=== PATIENT | female | born 1960 | race Caucasian/White ===

== ENCOUNTER 2018-09-09 15:57 | Emergency (ER) | payer SELFPAY ==
[2018-09-09 16:02] VITALS: BP 140/81; PULSE 57; RESP 18; TEMP 36.1; O2SAT 100
--- NOTE | 2018-09-09 16:22 | ED.NAVMDI ---
HPI - Nausea/Vomiting/Diarrhea General Chief complaint: Dizziness Stated complaint: nausea/ vomiting/ dizzy Time Seen by Provider: 09/09/18 16:00 Source: patient and EMS Mode of arrival: ambulatory Limitations: no limitations History of Present Illness HPI Narrative: The patient presents to the emergency department via EMS, complaining of an episode of vertigo and nausea and vomiting started this afternoon after she ate a breakfast sandwich with sausage from [employer]. Patient states that after she ate the sandwich she began to feel nauseated and felt as though the room was spinning. Patient vomited several times, and had to lay down because of dizziness. Patient denies diarrhea. She denies fevers. She recently had a URI type illness, but has been doing better with that for the last couple of days. Patient states that she has not had issues with vertigo previously. She states the dizziness gets worse with movement. She complains of an occipital headache. No abdominal pain. No chest pain or shortness of breath. No residual cough. No focal neurologic deficits. No visual changes. No other complaints at this time. Related Data Home Medications Medication Instructions Recorded Confirmed felodipine 10 mg PO DAILY 09/09/18 09/09/18 irbesartan-hydrochlorothiazide 0.5 tab PO DAILY 09/09/18 09/09/18 oxycodone-acetaminophen 1 tab PO Q6H PRN 09/09/18 Previous Rx's Medication Instructions Recorded diazepam [Valium] 2 mg PO TID-QID PRN #14 tab 09/09/18 meclizine 25 mg PO TID PRN #20 tab 09/09/18 ondansetron 4 mg PO QID PRN #20 tab 09/09/18 Allergies Allergy/AdvReac Type Severity Reaction Status Date / Time No Known Drug Allergies Allergy Verified 09/09/18 16:05 Review of Systems Constitutional Denies chills, Denies fever(s), Denies lethargy and Denies weakness Eyes Denies change in vision, Denies eye discharge, Denies irritation and Denies loss of vision ENT Ears, Nose, Mouth, and Throat: Denies change in voice, Reports vertigo, Denies neck pain and Denies sore throat Cardiovascular Denies chest pain, Denies irregular heart rhythm, Denies lightheadedness, Denies palpitations, Denies dyspnea, Denies dyspnea on exertion and Denies orthopnea Respiratory Denies cough, Denies dyspnea, Denies dyspnea on exertion and Denies wheezing Gastrointestinal Gastrointestinal: Denies abdominal pain, Denies change in bowel habits, Denies diarrhea, Reports nausea and Reports vomiting Genitourinary Denies hematuria, Denies flank pain, Denies urinary incontinence and Denies urinary urgency Musculoskeletal Denies neck pain Integumentary/Breasts Denies pruritus, Denies erythema, Denies rash and Denies wounds Neurologic Denies confusion, Reports vertigo, Denies loss of vision and Denies weakness Psychiatric Denies anxiety, Denies confusion, Denies depression, Denies homicidal ideation and Denies suicidal ideation Endocrine Denies palpitations Hematologic/Lymphatic Denies easy bruising Allergic/Immunologic Denies wheezing [employer] Medical History Healthy adult (Acute) Social History Smoking Status: Current every day smoker Social History Smoking Status: Current every day smoker Exam Initial Vital Signs Initial Vital Signs: Vital Signs Temperature 97.0 F L 09/09/18 16:02 Pulse Rate 57 L 09/09/18 16:02 Respiratory Rate 18 09/09/18 16:02 Blood Pressure 140/81 09/09/18 16:02 Pulse Oximetry 100 09/09/18 16:02 Const General: cooperative and well developed Nutritional Appearance: well nourished Orientation: alert, awake, oriented x3 and not confused [facility] Head: normocephalic and atraumatic Ears: external ears normal and TM's normal bilaterally Nose: external nose normal and No nasal discharge Face and sinus: sinuses nontender, face symmetric, no sinus tenderness and No dry mucous membranes Mouth: oral mucosae normal and moist mucous membranes Teeth and gingiva: dentition normal Throat: tonsils normal and uvula midline Eyes General: appearance normal, both eyes and all related structures Eyelids: eyelids normal Conjunctivae: conjunctivae normal Sclera: sclerae normal Pupils: PERRL EOM: EOM intact bilaterally Neck Neck: normal visual inspection, trachea midline, No lymphadenopathy, No midline deformity and No JVD Lymphatic: No lymphedema Chest Chest: normal inspection of the chest Resp Effort & Inspection: normal respiratory effort, able to speak in complete sentences, no respiratory distress and no use of accessory muscles Auscultation: clear to auscultation bilaterally, no rales, no rhonchi and no wheezes Cardio Rate: regular rate Rhythm: regular rhythm Heart Sounds: no click, no gallops, no murmurs and no rubs Pulses: normal peripheral pulses GI Inspection: non-distended Palpation: soft, no hepatosplenomegaly, No guarding, No pulsatile mass and No tender Auscultation: normal bowel sounds Back/Spine/Pelvis Back: No CVA tenderness Cervical Spine: cervical ROM normal and No pain with cervical ROM Thoracic/Lumbar Spine: thoracic and lumbar spine normal to inspection Skin General: no rashes or lesions noted, No jaundice and No petechiae Neuro General: alert, oriented x3, gait normal and no focal motor deficits Speech: speech normal Extrem General: full ROM, no clubbing, cyanosis or edema, no pedal edema and no calf tenderness Psych Appearance: well kempt Mental Status: mental status grossly normal Attitude: cooperative Thought Content: normal and suicidality Judgment: judgment good Course Course Narrative: Patient was treated with IV fluids, Zofran, Valium, and meclizine. She was found to be somewhat better with her vertigo after these interventions, but still somewhat vertiginous. She was worked up with laboratory studies and CT of the head, as well as EKG. Workup was unremarkable. I did discuss with the patient that at this point, given the relation to position and movement, her vertigo is most likely peripheral. The patient does note that she had a URI a week or 2 ago, and we have discussed that she may have some labyrinthitis related to this. We have discussed home treatment for vertigo, as well as potentially for follow-up with ENT or neurology, should symptoms fail to resolve in the next week or so. We have also discussed the usual indications for return. I will give patient a prescription for symptomatic management at home. Patient has family here who can drive her home and with whom she can stay until she is feeling better. Orders Ordered: Discontinued Medications Diazepam (Valium) 2 mg IV NOW ONE Stop: 09/09/18 18:40 Last Admin: 09/09/18 18:54 Dose: 2 mg Sodium Chloride (Normal Saline 0.9%) 1,000 mls @ 1,000 mls/hr IV BOLUS ONE Stop: 09/09/18 17:44 Last Infusion: 09/09/18 18:29 Dose: 0 mls/hr Admin: 09/09/18 17:21 Dose: 1,000 mls/hr Meclizine HCl (Antivert) 50 mg PO NOW ONE Stop: 09/09/18 18:40 Last Admin: 09/09/18 19:46 Dose: 25 mg Ondansetron HCl (Zofran) 4 mg IV NOW ONE Stop: 09/09/18 17:47 Last Admin: 09/09/18 17:53 Dose: 4 mg Vital Signs - 8 hr 09/09/18 16:02 Temperature 97.0 F L Pulse Rate 57 L Respiratory Rate 18 Blood Pressure 140/81 Pulse Oximetry 100 MDM - Nausea/Vomiting/Diarrhea Medical Records Attestation: I reviewed the patient's medical records. Lab Data Attestation: I reviewed the patient's lab results. Result diagrams: 09/09/18 16:24 09/09/18 16:24 Lab Results 09/09/18 09/09/18 Range/Units 16:24 16:24 WBC 8.1 (4.5-11.0) X10^3/uL RBC 4.40 (4.0-5.2) X10^6/uL Hgb 13.6 (12.0-16.0) g/dL Hct 41.0 (36-46) % MCV 93.1 (80-100) fL MCH 30.9 (26-34) PG MCHC 33.2 (30-36) % RDW 13.3 (11.6-14.8) % Plt Count 297 (150-400) X10^3/uL Neut % (Auto) 69.2 (50-75) % Lymph % (Auto) 21.4 L (25-40) % [place] % (Auto) 6.7 (3-14) % Eos % (Auto) 1.9 L (2-4) % Baso % (Auto) 0.8 (0-2) % Neut # (Auto) 5600 (4322-8573) /uL Lymph # (Auto) 1700 (0445-3977) /uL [place] # (Auto) 500 (0-900) /uL Eos # (Auto) 200 (0-450) /uL Baso # (Auto) 100 (0-100) /uL Sodium 139 (137-145) mmol/L Potassium 3.8 (3.4-5.1) mmol/L Chloride 103 (98-107) mmol/L Carbon Dioxide 25 (22-32) mmol/L BUN 17 (7-17) mg/dL Creatinine 0.70 (0.52-1.04) mg/dL Estimated GFR > 60.0 (>60) mL/min BUN/Creatinine Ratio 24.3 H (6-22) Glucose 114 H (70-100) mg/dL Calcium 9.7 (8.4-10.2) mg/dL Total Bilirubin 0.4 (0.2-1.3) mg/dL AST 26 (14-36) IU/L ALT 27 (9-52) IU/L Alkaline Phosphatase 82 (38-126) U/L Total Creatine Kinase 104 (30-135) U/L CK-MB (CK-2) 0.40 (<2.37) ng/mL CK-MB (CK-2) Rel Index 0.4 L (1.5-5.0) % Troponin I < 0.012 (0.01-0.034) ng/mL Total Protein 7.2 (6.3-8.2) g/dL Albumin 4.1 (3.5-5.0) g/dL Globulin 3.1 (1.7-4.1) g/dL Albumin/Globulin Ratio 1.3 (1.0-2.8) Imaging Data CT scan - head: Radiologist's impression: PROCEDURE: CT HEAD/BRAIN WO CON INDICATIONS: dizziness/nausea/headache TECHNIQUE: Noncontrast 4.5 mm thick angled axial sections acquired from the foramen magnum to the vertex, with coronal and sagittal reformats. For radiation dose reduction, the following was used: automated exposure control, adjustment of mA and/or kV according to patient size. COMPARISON: None. FINDINGS: Image quality: Excellent. CSF spaces: Basal cisterns are patent. No extra-axial fluid collections. Ventricles are normal in size and shape. Brain: No midline shift. No intracranial masses or hemorrhage. Medeiros-white matter interface is normal. Skull and face: Calvarium and visualized facial bones are intact, without suspicious lesions. Sinuses: Visualized sinuses and mastoids are clear. IMPRESSION: No acute process. Dictated by: Charu Kate M.D. on 09/09/2018 at 18:33 Approved by: Charu Kate M.D. on 09/09/2018 at 18:33 ECG Data Attestation: I personally reviewed and interpreted this ECG as follows: (See below) Interpretation: Twelve lead EKG performed September 09, 2018, at 4:13 p.m., as follows: Regular ventricular rhythm with a rate of 55 beats per minute TX interval 151 milliseconds QRS duration 91 milliseconds QTC interval 435 millisecond Normal axis No ST T wave changes Interpretation: Sinus bradycardia; incomplete right bundle-branch block; no signs of acute ischemia; borderline EKG as interpreted by ED MD Discharge Plan Departure Patient Disposition: Home Clinical Impression: Vertigo Vomiting Qualifiers: Vomiting type: unspecified Vomiting Intractability: non-intractable Nausea presence: with nausea Qualified Code(s): R11.2 - Nausea with vomiting, unspecified Discharge Date/Time: 09/09/18 20:56 Interventions: ED Discharge Assessment Last Done: 09/09/18 20:56 Instructions: DI for Vertigo Activity Restrictions/Additional Instructions: Your labs and CT scan look good. There is no evidence of any of the dangerous causes of vertigo today. Your symptoms may be due to a viral infection of the nerves of the inner ear, or to calcium deposits in your inner ear, triggering the nerves that sense movement. The symptoms will generally blow over on their own in a few days to a few weeks. In the meantime, drink plenty of fluids, and take the medications prescribed, as needed. Prescriptions: New meclizine 25 mg tablet 25 mg PO TID PRN (Reason: dizziness) Qty: 20 RF: 0 diazepam [Valium] 2 mg tablet 2 mg PO TID-QID PRN (Reason: dizziness) Qty: 14 RF: 0 ondansetron 4 mg tablet,disintegrating 4 mg PO QID PRN (Reason: nausea and vomiting) Qty: 20 RF: 0 No Action oxycodone-acetaminophen 5-325 mg tablet 1 tab PO Q6H PRN (Reason: Pain, Severe) RF: 0 irbesartan-hydrochlorothiazide 300-12.5 mg tablet 0.5 tab PO DAILY RF: 0 felodipine 10 mg tablet extended release 24 hr 10 mg PO DAILY RF: 0 Referrals: [facility] [Provider Group] [facility] [Provider Group] [facility] [Provider Group]
[2018-09-09 16:31] LABS: Add Manual Diff / Slide Review NO; Basophils Absolute Auto 100 /uL (0-100); Basophils Percent Auto 0.8 % (0-2); Eosinophils Absolute Auto 200 /uL (0-450); Eosinophils Percent Auto 1.9 % (2-4); Hemoglobin 13.6 g/dL (12.0-16.0); Lymphocytes Absolute Auto 1700 /uL (1100-4500); Lymphocytes Percent Auto 21.4 % (25-40); Mean Corpuscular HGB Conc 33.2 % (30-36); Mean Corpuscular Hemoglobin 30.9 PG (26-34); Mean Corpuscular Volume 93.1 fL (80-100); Monocytes Absolute Auto 500 /uL (0-900); Monocytes Percent Auto 6.7 % (3-14); Neutrophils Absolute Auto 5600 /uL (1500-7000); Neutrophils Percent Auto 69.2 % (50-75); Platelet Count 297 X10^3/uL (150-400); Red Cell Distribution Width 13.3 % (11.6-14.8); White Blood Cell Count 8.1 X10^3/uL (4.5-11.0)
[2018-09-09 16:50] LABS: Alanine Aminotransferase 27 IU/L (9-52); Albumin 4.1 g/dL (3.5-5.0); Albumin Globulin Ratio 1.3 (1.0-2.8); Alkaline Phosphatase 82 U/L (38-126); Aspartate Aminotransferase 26 IU/L (14-36); BUN Creatinine Ratio 24.3 (6-22); Bilirubin Total 0.4 mg/dL (0.2-1.3); Blood Urea Nitrogen 17 mg/dL (7-17); Calcium 9.7 mg/dL (8.4-10.2); Carbon Dioxide 25 mmol/L (22-32); Chloride 103 mmol/L (98-107); Creatine Kinase 104 U/L (30-135); Estimated Glomerular Filt Rate > 60.0 mL/min (>60); Globulin 3.1 g/dL (1.7-4.1); Glucose 114 mg/dL (70-100); HEMOLYSIS < 15 (0-50); Potassium 3.8 mmol/L (3.4-5.1); Sodium 139 mmol/L (137-145); Total Protein 7.2 g/dL (6.3-8.2)
[2018-09-09 17:02] LABS: Troponin I < 0.012 ng/mL (0.01-0.034)
[2018-09-09 17:06] LABS: CKMB % Relative Index 0.4 % (1.5-5.0)
[2018-09-09] MEDS: SODIUM CHLORIDE 0.9% 1,000 ML 1000 ML IV (17:21)
--- NOTE | 2018-09-09 17:47 | DI.CT.S_ITS ---
PROCEDURE: CT HEAD/BRAIN WO CON INDICATIONS: dizziness/nausea/headache TECHNIQUE: Noncontrast 4.5 mm thick angled axial sections acquired from the foramen magnum to the vertex, with coronal and sagittal reformats. For radiation dose reduction, the following was used: automated exposure control, adjustment of mA and/or kV according to patient size. COMPARISON: None. FINDINGS: Image quality: Excellent. CSF spaces: Basal cisterns are patent. No extra-axial fluid collections. Ventricles are normal in size and shape. Brain: No midline shift. No intracranial masses or hemorrhage. Medeiros-white matter interface is normal. Skull and face: Calvarium and visualized facial bones are intact, without suspicious lesions. Sinuses: Visualized sinuses and mastoids are clear. IMPRESSION: No acute process. Dictated by: Charu Kate M.D. on 09/09/2018 at 18:33 Approved by: Charu Kate M.D. on 09/09/2018 at 18:33
[2018-09-09] MEDS: ONDANSETRON 4 MG/2 ML INJ IV (17:53)
[2018-09-09] MEDS: diazePAM 10 MG/2 ML SYRINGE 2 MG IV (18:54)
[2018-09-09 19:09] VITALS: BP 128/72; PULSE 53; RESP 15; O2SAT 96
[2018-09-09] MEDS: MECLIZINE HCL 12.5 MG TABLET 50 MG PO (19:46)
[2018-09-09 20:00] VITALS: BP 117/84; PULSE 54; RESP 16; O2SAT 97
[2018-09-09 20:30] VITALS: BP 133/73; PULSE 51; RESP 18; O2SAT 98
== END 2018-09-09 20:56 | disposition home or self-care (01) ==
PROVIDERS: Emergency Provider Emergency Medicine
DX: R42 Dizziness and giddiness (principal); R11.2 Nausea with vomiting, unspecified; R00.1 Bradycardia, unspecified
CPT/HCPCS: 70450; 80053; 82550; 82553; 84484; 85025; 93005; 96361; 96374; 96375; 99283; 99285; J2405; J3360

== ENCOUNTER 2022-10-18 12:38 | Emergency (ER) | payer OTHER, MEDICAID, SELFPAY ==
[2022-10-18 12:42] VITALS: BP 142/86; PULSE 115; RESP 18; TEMP 36.4; O2SAT 99; BMI 19.2
--- NOTE | 2022-10-18 14:57 | ED_ITS ---
HPI - Extremity Problem General Chief complaint: Extremity Problem,Nontraumatic Stated complaint: numbness extremities t-90/pain lt leg Time Seen by Provider: 10/18/22 14:57 Source: patient Mode of arrival: Ambulatory History of Present Illness HPI Narrative: 62-year-old female smoker with history of hypertension presents with a chief complaint of many months if not years of progressive numbness and tingling of initially her feet and now both hands. She is been having trouble with numbness and tingling of her feet which is worked its way up midway to her shins. She has been seen and evaluated by neurologist who diagnosed her with a peripheral neuropathy and was hoping she could get an MRI but due to insurance reasons she is been unable. She takes no medications other than her antihypertensives. She denies any recent trauma or injury. She denies headache or blurred vision. She has no runny nose, sore throat or cough. She denies chest pain or shortness of breath. She does have the occasional pain, numbness and tingling that works its way down her entire left leg. She states that it has become weak over the past few months and she even complains of some trouble urinating or creating a bowel movement. She denies the use of blood thinners, fever or trauma. Related Data Home Medications Medication Instructions Recorded Confirmed felodipine 10 mg tablet,extended 10 mg PO DAILY 09/09/18 09/09/18 release 24 hr irbesartan 300 0.5 tab PO DAILY 09/09/18 09/09/18 mg-hydrochlorothiazide 12.5 mg tablet oxycodone-acetaminophen 5 mg-325 1 tab PO Q6H PRN Pain, Severe 09/09/18 mg tablet Previous Rx's Medication Instructions Recorded diazepam 2 mg tablet (Valium) 2 mg PO TID-QID PRN dizziness #14 09/09/18 tabs meclizine 25 mg tablet 25 mg PO TID PRN dizziness #20 tabs 09/09/18 ondansetron 4 mg disintegrating 4 mg PO QID PRN nausea and 09/09/18 tablet vomiting #20 tabs cyclobenzaprine 10 mg tablet 10 mg PO TID PRN muscle spasm #14 10/18/22 tabs gabapentin 300 mg capsule 300 mg PO BEDTIME #14 caps 10/18/22 hydrocodone 5 mg-acetaminophen 325 1 tab PO Q4-6H PRN pain #10 tabs 10/18/22 mg tablet ketorolac 10 mg tablet 10 mg PO Q6H PRN pain #14 tabs 10/18/22 methylprednisolone 4 mg tablets in See Rx Instructions PO .COMPLEX 10/18/22 a dose pack (Medrol (Nic)) #21 ea Allergies Allergy/AdvReac Type Severity Reaction Status Date / Time No Known Drug Allergies Allergy Verified 10/18/22 12:47 Review of Systems Review of Systems Narrative: GENERAL: Denies chills, fatigue, malaise, fever, sweats. HEENT: Denies sinus pain, ear pain, sore throat, difficulty swallowing, dizziness. RESPIRATORY: Denies dyspnea, cough, wheezing, hemoptysis, sputum. CARDIOVASCULAR: Denies chest pain, palpitations, orthopnea, edema, GASTROINTESTINAL: Denies nausea, vomiting, abdominal pain, diarrhea, constipation, melena. : Denies dysuria, frequency, incontinence, hematuria, urinary retention. MUSCULOSKELETAL: See HPI SKIN: Denies rash, skin lesions, or other NEUROLOGIC: See HPI PSYCHIATRIC: No concerning psychosocial issues. 12 point review of systems is negative except for those stated above Patient History Medical History Healthy adult Social History Smoking Status: Current every day smoker Smoking Status: Current every day smoker tobacco type: cigarettes alcohol intake frequency: 0-2 drinks per day Substance Use Type: does not use Exam Narrative Exam Narrative: GENERAL: [62] year old patient appears stated age. Well-developed patient, in mild distress. HEAD: Atraumatic. Normocephalic. EYES: Pupils equal round and reactive. Extraocular motions intact. No scleral icterus. No injection or drainage. ENT: Nose without bleeding, purulent drainage. Throat without erythema, tonsillar hypertrophy or exudate. Airway patent. NECK: Trachea midline. Non tender CARDIOVASCULAR: Regular rate and rhythm without murmurs, gallops, or rubs. RESPIRATORY: Clear to auscultation. Breath sounds equal bilaterally. No wheezes, rales, or rhonchi. GASTROINTESTINAL: Abdomen soft, non-tender, nondistended. EXTREMITIES: No edema or joint tenderness. BACK: Nontender without deformity or crepitance. No flank tenderness. NEURO: AOx3. SKIN: No rash or erythema of visible areas Initial Vital Signs Initial Vital Signs: Vital Signs Temperature 97.5 F L 10/18/22 12:42 Pulse Rate 115 H 10/18/22 12:42 Respiratory Rate 18 10/18/22 12:42 Blood Pressure 142/86 H 10/18/22 12:42 Pulse Oximetry 99 10/18/22 12:42 Oxygen Delivery Method Room Air 10/18/22 12:42 Course Orders Ordered: Discontinued Medications Gabapentin (Gabapentin 300 Mg Capsule) 300 mg PO NOW ONE Stop: 10/18/22 15:08 Last Admin: 10/18/22 15:17 Dose: 300 mg Documented By: RB Lorazepam (Lorazepam 2 Mg/Ml Inj) 1 mg IM NOW ONE Stop: 10/18/22 15:39 Last Admin: 10/18/22 15:44 Dose: 1 mg Documented By: RB Prednisone (Prednisone 20 Mg Tablet) 40 mg PO NOW ONE Stop: 10/18/22 15:08 Last Admin: 10/18/22 15:17 Dose: 40 mg Documented By: RB Vital Signs Vital signs: Vital Signs - 8 hr 10/18/22 12:42 Temperature 97.5 F L Pulse Rate 115 H Respiratory Rate 18 Blood Pressure 142/86 H Pulse Oximetry 99 Oxygen Delivery Method Room Air MDM - Extremity (Nontraumatic) MDM Narrative Medical decision making narrative: [62] year old patient presents with numbness and tingling of both feet and left leg weakness in the absence of trauma Multiple etiologies for patient's symptoms considered including, but not limited to: [Peripheral neuropathy versus lumbar radiculopathy versus epidural abscess versus hematoma versus cauda equina versus other] Prior Charts reviewed in our EMR Primary Historian: patient Imaging reviewed: Lumbar MRI notes degenerative change at L4 and L5 with moderate to severe narrowing of the spinal canal and bilateral neural foraminal narrowing, at L5-S1 there is moderate narrowing of the spinal canal and severe bilateral neural foraminal narrowing, moderate to severe neural foraminal narrowing at the L3-L4 level on the left Patient's symptoms improved over duration of stay with above-stated therapies. No evidence of cauda equina or spinal cord compression, no epidural abscess or hematoma, radicular symptoms likely explained by these findings on imaging. Findings and discharge diagnosis discussed with patient/family followed by verbalization of understanding Return precautions discussed with patient/family whom verbalize understanding of diagnosis and plan Discharge Plan Departure Patient Disposition: Home Clinical Impression: Acute left lumbar radiculopathy Instructions: DI for Lumbar Radiculopathy Activity Restrictions/Additional Instructions: *You have been diagnosed with [acute lumbar radiculopathy] *What to do: *Please continue to take your regular medications as directed. [ x] New medication prescriptions sent to your pharmacy: [[facility] ] [ ] New medication written as a paper prescription [ ] No new medications given *Please follow up with Dr. Keyes at [facility] in 2-3 days, call for an appointment. Let them know you were seen in the Emergency Department and that we ask that you be seen in follow up. We will electronically transmit a record of today's note if your PCP is in our system *Return to Emergency Department if you should have any new, worsening or concerning symptoms, such as increasing pain, weakness, loss of control of bowel or bladder or other bothersome symptoms Prescriptions: New cyclobenzaprine 10 mg tablet 10 mg PO TID PRN (Reason: muscle spasm) Qty: 14 0RF hydrocodone-acetaminophen 5-325 mg tablet 1 tab PO Q4-6H PRN (Reason: pain) Qty: 10 0RF ketorolac 10 mg tablet 10 mg PO Q6H PRN (Reason: pain) Qty: 14 0RF gabapentin 300 mg capsule 300 mg PO BEDTIME Qty: 14 0RF methylprednisolone [Medrol (Nic)] 4 mg tablets,dose pack See Rx Instructions .ROUTE .COMPLEX Qty: 21 0RF Rx Instructions: orally per package directions No Action oxycodone-acetaminophen 5-325 mg tablet 1 tab PO Q6H PRN (Reason: Pain, Severe) Patient Comments: TK 1 T PO Q 6 H PRF SEVERE PAIN irbesartan-hydrochlorothiazide 300-12.5 mg tablet 0.5 tab PO DAILY Patient Comments: TK SS T PO D felodipine 10 mg tablet extended release 24 hr 10 mg PO DAILY Patient Comments: TK 1 T PO DAILY meclizine 25 mg tablet 25 mg PO TID PRN (Reason: dizziness) Qty: 20 0RF diazepam [Valium] 2 mg tablet 2 mg PO TID-QID PRN (Reason: dizziness) Qty: 14 0RF ondansetron 4 mg tablet,disintegrating 4 mg PO QID PRN (Reason: nausea and vomiting) Qty: 20 0RF Referrals: Kevin Keyes MD [Physician] - Miscellaneous,MD Hina [Primary Care Provider] - Stand Alone Forms: Patient Portal/API
--- NOTE | 2022-10-18 15:06 | DI.MRI.S_ITS ---
PROCEDURE: MR LUMBAR SPINE WO CON INDICATIONS: Left leg weakness, trouble with bowel and bladder TECHNIQUE: Noncontrast sagittal T1 spin echo and T2 fast echo, sagittal STIR, and T2 fast spin echo through the lumbar spine. In cases with scoliosis, additional coronal T2 fast spin echo may be performed. COMPARISON: None. FINDINGS: Image quality: Excellent. Alignment and Curvature: 2 mm grade 1 retrolisthesis of L5 on S1. Straightening of the normal lumbar lordosis. Bone Marrow: Marrow is of normal overall signal. No acute vertebral body compression fractures. Modic type 1 degenerative endplate changes are seen surrounding the L5-S1 disc space. Multilevel Modic type 2 degenerative endplate changes. Spinal Cord: Conus medullaris terminates at the L2 level. Visualized cord demonstrates normal signal and size. Paraspinous Soft Tissues: No paravertebral masses. 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 T12-L1: No spinal canal stenosis or neural foraminal narrowing. L1-L2: Disc desiccation and loss of disc space height with circumferential disc bulging, bilateral facet hypertrophy, and buckling of the ligamentum flavum. Findings result in mild narrowing of the spinal canal and mild bilateral neural foraminal narrowing. L2-L3: Disc desiccation and loss of disc space height with circumferential disc bulging, mild bilateral facet hypertrophy, buckling of the ligamentum flavum. There is moderate narrowing of the spinal canal as well as moderate right and mild left neural foraminal narrowing. L3-L4: Disc desiccation loss of disc space height with circumferential disc bulging as well as bilateral facet hypertrophy and buckling of the ligamentum flavum. Findings result in mild narrowing of the spinal canal as well as [id number] right and moderate to severe left neural foraminal narrowing. L4-L5: Disc desiccation and loss of disc space height with circumferential disc bulging as well as moderate bilateral facet hypertrophy and buckling of the ligamentum flavum. Findings result in moderate to severe narrowing of the spinal canal, effacement of the bilateral lateral recesses, and moderate to severe bilateral neural foraminal narrowing. L5-S1: Disc desiccation and loss of disc space height with circumferential disc bulging, bilateral facet hypertrophy, and buckling of the ligamentum flavum. Findings result in moderate narrowing of the spinal canal as well as severe bilateral neural foraminal narrowing. IMPRESSION: 1. At L4-5, degenerative changes result in moderate to severe narrowing of the spinal canal, effacement of the lateral recesses, and moderate to severe bilateral neural foraminal narrowing. 2. At L5-S1, degenerative changes result in moderate narrowing of the spinal canal and severe bilateral neural foraminal narrowing. 3. Moderate to severe neural foraminal narrowing also noted at the L3-4 level on the left. 4. Additional moderate to severe degenerative disc disease and facet hypertrophy as described in detail in the body of the report. Approved by: Titi Arroyo M.D. on 10/18/2022 at 16:30
[2022-10-18] MEDS: GABAPENTIN 300 MG CAPSULE PO (15:17)
[2022-10-18] MEDS: predniSONE 20 MG TABLET 40 MG PO (15:17)
[2022-10-18 15:18] VITALS: PULSE 82
[2022-10-18 15:21] VITALS: O2SAT 100
[2022-10-18 15:25] VITALS: BP 146/85; PULSE 77; O2SAT 100
[2022-10-18] MEDS: LORazepam 2 MG/ML INJ 1 MG IM (15:44)
[2022-10-18 17:07] VITALS: PULSE 88; O2SAT 97
[2022-10-18 17:08] VITALS: BP 124/75; PULSE 88; O2SAT 97
== END 2022-10-18 18:00 | disposition home or self-care (01) ==
PROVIDERS: Emergency Provider Emergency Medicine
DX: M54.16 Radiculopathy, lumbar region (principal)
CPT/HCPCS: 72148; 96372; 99283; 99284; J2060

== ENCOUNTER → 2022-12-11 12:11 | Outpatient (CLI) | payer OTHER, MEDICAID, SELFPAY | PROVIDERS: Visit Provider Nurse Practitioner Family | DX: R30.0 Dysuria (principal); R82.90 Unspecified abnormal findings in urine | CPT/HCPCS: 81002; 87077; 87086; 87186 ==

== ENCOUNTER → 2023-01-02 11:51 | Outpatient (CLI) | payer OTHER, MEDICAID, SELFPAY ==
--- NOTE | 2023-01-02 11:53 | DI.MRI.S_ITS ---
PROCEDURE: MR CERVICAL SPINE WO CON INDICATIONS: SPINAL STENOSIS TECHNIQUE: Noncontrast sagittal T1 spin echo and T2 fast spin echo, sagittal STIR, foraminal oblique sagittal T2 fast spin echo, and axial gradient echo or T2 fast spin echo through the cervical spine. COMPARISON: None. FINDINGS: Image quality: Excellent. Alignment and Curvature: Reversal the normal cervical lordosis present in the upper cervical spine Bone Marrow: Multilevel degenerative endplate changes present. There is C3-4 interbody fusion without instrumentation. Craniovertebral relationships are normal. Spinal Cord: Visualized spinal cord has normal size and signal. No cerebellar tonsillar herniation. Paraspinous Soft Tissues: No paravertebral masses. Prevertebral soft tissues are normal in thickness. C2-C3: Disc space narrowing posterior disc osteophyte complex with moderate central stenosis. Moderate bilateral foraminal stenosis. C3-C4: Interbody fusion. Posterior disc osteophyte results in moderate central stenosis moderate left and mild right foraminal stenosis C4-C5: Disc space narrowing with large posterior disc osteophyte complex hypertrophic uncovertebral joints present. Severe central and severe bilateral foraminal stenosis present. C5-C6: Disc space narrowing with posterior disc osteophyte complex results in moderate central stenosis with flattening the ventral surface of the cord severe left and moderate right foraminal stenosis C6-C7: Disc space narrowing with posterior disc osteophyte complex results in moderate central stenosis. Severe bilateral foraminal stenosis C7-T1: Disc space narrowing and posterior disc osteophyte complex present. No central stenosis. Severe bilateral foraminal stenosis. IMPRESSION: Multilevel degenerative disc disease and arthropathy results in varying degrees of central and foraminal stenosis including severe central stenosis at C4-5 and severe foraminal stenosis C4-5, C5-6, C6-7, C7-T1 Approved by: Antwan Baca M.D. on 01/02/2023 at 17:10
== END ==
PROVIDERS: Referring Provider Neurological Surgery; Visit Provider Neurological Surgery
DX: M48.02 Spinal stenosis, cervical region (principal); M50.30 Other cervical disc degeneration, unspecified cervical region; M47.812 Spondylosis without myelopathy or radiculopathy, cervical region; Z98.1 Arthrodesis status
CPT/HCPCS: 72141

== ENCOUNTER → 2023-02-08 10:32 | Outpatient (CLI) | payer OTHER, MEDICAID, SELFPAY ==
--- NOTE | 2023-02-08 | DI.CT.S_ITS ---
PROCEDURE: CT CERVICAL SPINE WO CON INDICATIONS: CERVICAL MYELOPATHY TECHNIQUE: Noncontrast 3 mm thick sections acquired from the skull base to the T4 level. Sagittal and coronal reformats were then constructed. For radiation dose reduction, the following was used: automated exposure control, adjustment of mA and/or kV according to patient size. COMPARISON: [facility], MR, MR CERVICAL SPINE WO CON, 01/02/2023, 12:00. FINDINGS: Image quality: Excellent. Bones: No fractures or dislocations. Ankylosis of the C3 and C4 vertebral bodies. Straightening of normal cervical lordosis with reversal at the upper cervical spine. There are multilevel degenerative changes of the cervical spine with facet and uncovertebral arthropathy, disc height loss with degenerative endplate changes and spurring. Visualized superior ribs are intact. Soft tissues: Prevertebral soft tissues are normal in thickness. No paravertebral hematomas. No apical pneumothoraces. Emphysematous changes are noted within the lung apices. IMPRESSION: Severe multilevel degenerative changes of the cervical spine. Please refer to recent MRI of the cervical spine with regards to central canal and neural foraminal stenosis. Dictated by: Dre Gonsales M.D. on 02/08/2023 at 11:25 Approved by: Dre Gonsales M.D. on 02/08/2023 at 11:29
--- NOTE | 2023-02-08 | DI.RAD.S_ITS ---
PROCEDURE: XR CERVICAL SPINE MIN 6V INDICATIONS: CERVICAL MYELOPATHY TECHNIQUE: 7 views of the cervical spine were acquired. COMPARISON: [facility], CT, CT CERVICAL SPINE WO [facility], 02/08/2023, 10:42. FINDINGS: Bones: No fractures or dislocations to the T1 level. Straightening of normal cervical lordosis with reversal of the upper cervical lordosis. No suspicious bony lesions. There are multilevel degenerative changes of the cervical spine with facet and uncovertebral arthropathy, disc height loss with degenerative endplate changes and spurring. There is limited range of motion between flexion and extension, with preserved bony alignment. Multilevel osseous neural foraminal stenosis on oblique views. Soft tissues: Prevertebral soft tissues are normal in thickness. IMPRESSION: Severe multilevel degenerative changes of the cervical spine are redemonstrated with limited range of motion on flexion and extension views. Dictated by: Dre Gonsales M.D. on 02/08/2023 at 11:30 Approved by: Dre Gonsales M.D. on 02/08/2023 at 11:32
== END ==
PROVIDERS: Referring Provider Neurological Surgery; Visit Provider Neurological Surgery
DX: M47.12 Other spondylosis with myelopathy, cervical region (principal)
CPT/HCPCS: 72052; 72125

== ENCOUNTER → 2023-04-07 13:01 | Outpatient (CLI) | payer OTHER, MEDICAID, SELFPAY | PROVIDERS: PCP Family Medicine; Visit Provider Family Medicine ==

== ENCOUNTER → 2023-08-29 10:53 | Outpatient (CLI) | payer OTHER, MEDICAID, SELFPAY | PROVIDERS: PCP Family Medicine; Visit Provider Nurse Practitioner Family | DX: S61.409A Unspecified open wound of unspecified hand, initial encounter (principal); B00.9 Herpesviral infection, unspecified | CPT/HCPCS: 87070; 87147; 87205; 87255 ==

== ENCOUNTER → 2023-09-23 16:40 | Outpatient (CLI) | payer OTHER, MEDICAID, SELFPAY | PROVIDERS: PCP Family Medicine; Visit Provider Nurse Practitioner Family | DX: L08.9 Local infection of the skin and subcutaneous tissue, unspecified (principal) | CPT/HCPCS: 87070; 87075; 87077; 87147; 87205 ==

== ENCOUNTER → 2023-11-19 11:41 | Outpatient (CLI) | payer MEDICARE, OTHER, MEDICAID, SELFPAY ==
[2023-11-19 12:38] LABS: Cholesterol 253 mg/dL (140-199); HDL Cholesterol 57 mg/dL (40-60); LDL Cholesterol Calculated 160 mg/dL (<100); Triglycerides 180 mg/dL (35-150)
[2023-11-20 18:31] LABS: Hemoglobin A1C% w Est Avg Glu 5.6 % (4.0-6.0)
== END ==
PROVIDERS: PCP Family Medicine; Referring Provider Family Medicine; Visit Provider Family Medicine
DX: I10 Essential (primary) hypertension (principal)
CPT/HCPCS: 36415; 80061; 83036

== ENCOUNTER → 2024-11-04 11:14 | Outpatient (CLI) | payer MEDICARE, OTHER, SELFPAY ==
[2024-11-04 12:12] LABS: Add Manual Diff / Slide Review NO; Basophils Absolute Auto 100 /uL (0-100); Basophils Percent Auto 1.2 % (0-2); Eosinophils Absolute Auto 200 /uL (0-450); Eosinophils Percent Auto 3.6 % (2-4); Hemoglobin 14.4 g/dL (12.0-16.0); Lymphocytes Absolute Auto 2300 /uL (1100-4500); Lymphocytes Percent Auto 35.7 % (25-40); Mean Corpuscular HGB Conc 34.3 % (30-36); Mean Corpuscular Hemoglobin 31.2 PG (26-34); Monocytes Absolute Auto 400 /uL (0-900); Monocytes Percent Auto 6.5 % (3-14); Neutrophils Absolute Auto 3400 /uL (1500-7000); Platelet Count 277 X10^3/uL (150-400); Red Blood Cell Count 4.62 X10^6/uL (4.0-5.2); Red Cell Distribution Width 13.2 % (11.6-14.8); White Blood Cell Count 6.4 X10^3/uL (4.5-11.0)
[2024-11-04 12:31] LABS: Hemoglobin A1C% w Est Avg Glu 5.3 % (4.0-6.0)
[2024-11-04 12:33] LABS: Alanine Aminotransferase 24 IU/L (<35); Albumin 4.5 g/dL (3.5-5.0); Albumin Globulin Ratio 1.3 (1.0-2.8); Alkaline Phosphatase 105 U/L (38-126); Aspartate Aminotransferase 31 IU/L (14-36); BUN Creatinine Ratio 32.6 (6-22); Bilirubin Total 0.7 mg/dL (0.2-1.3); Blood Urea Nitrogen 30 mg/dL (7-17); Calcium 9.6 mg/dL (8.4-10.2); Carbon Dioxide 26 mmol/L (22-32); Chloride 104 mmol/L (98-107); Cholesterol 260 mg/dL (140-199); Estimated Glomerular Filt Rate > 60 mL/min (>60); Globulin 3.6 g/dL (1.7-4.1); Glucose 94 mg/dL (70-99); HDL Cholesterol 53 mg/dL (40-60); HEMOLYSIS < 15 (0-50); LDL Cholesterol Calculated 181 mg/dL (<100); Potassium 4.3 mmol/L (3.4-5.1); Sodium 139 mmol/L (137-145); Total Protein 8.1 g/dL (6.3-8.2); Triglycerides 129 mg/dL (35-150)
[2024-11-04 13:04] LABS: TSH w/ Reflex to FT4 1.02 uIU/mL (0.47-4.68)
[2024-11-04 13:23] LABS: Vitamin B12 > 1000 pg/mL (239-931)
[2024-11-04 13:25] LABS: Erythrocyte Sedimentation Rate 5 MM/HR (0-20)
== END ==
PROVIDERS: PCP Family Medicine; Referring Provider Family Medicine; Visit Provider Family Medicine
DX: E78.5 Hyperlipidemia, unspecified (principal); M11.20 Other chondrocalcinosis, unspecified site; G60.3 Idiopathic progressive neuropathy
CPT/HCPCS: 36415; 80053; 80061; 82607; 83036; 84155; 84165; 84443; 85025; 85651

== ENCOUNTER 2025-04-05 18:07 | Inpatient (IN) | payer MEDICARE, OTHER, SELFPAY ==
[2025-04-05] VITALS (8 sets, daily range): BP systolic 128–147; BP diastolic 69–80; PULSE 67–83; RESP 20; TEMP 36.8–37.3; O2SAT 93–97; BMI 19.2
--- NOTE | 2025-04-05 | DI.RAD.S_ITS ---
PROCEDURE: XR CHEST 1V INDICATIONS: CXR TECHNIQUE: One view of the chest was acquired. COMPARISON: None. FINDINGS: Surgical changes and devices: Surgical fusion of the lower cervical spine. Lungs and pleura: Lungs are clear. No pleural effusions or pneumothorax. Mediastinum: Mediastinal contours appear normal. Heart size is normal. Bones and chest wall: No suspicious bony lesions. Overlying soft tissues appear unremarkable. IMPRESSION: No acute cardiopulmonary abnormality is seen. Dictated by: Oren Seth M.D. on 04/05/2025 at 18:59 Approved by: Oren Seth M.D. on 04/05/2025 at 19:00
--- NOTE | 2025-04-05 | DI.CT.S_ITS ---
PROCEDURE: CT PEL WO CON INDICATIONS: LEFT HIP PAIN AFTER FALL TECHNIQUE: Noncontrast 3 mm axial sections acquired through the bony pelvis, with coronal and sagittal reformatting. COMPARISON: None. FINDINGS: Image quality: Excellent. Bones: Angulated transcervical fracture of the left femur, with mild impaction. Soft tissues: Large left joint effusion. Severe dilation of the right renal pelvis, with transition point at the UPJ. Normal appendix. No significant diverticular disease. Tubal ligation clips present. IMPRESSION: Transcervical fracture of the left femur. Severe dilation of the right renal pelvis, with transition point at the UPJ. UPJ obstruction not excluded. Consider outpatient CT IVP unless there is abnormal creatinine (in which case an inpatient CT IVP would be recommended). Dictated by: Oren Seth M.D. on 04/05/2025 at 19:24 Approved by: Oren Seth M.D. on 04/05/2025 at 19:27
--- NOTE | 2025-04-05 18:17 | DI.RAD.S_ITS ---
PROCEDURE: XR HIP W PEL IF DONE LT 2V INDICATIONS: hip fracture suspected TECHNIQUE: 3 views of the hip were acquired. COMPARISON: None. FINDINGS/IMPRESSION: Impacted transcervical fracture of the left femur. Dictated by: Oren Seth M.D. on 04/05/2025 at 18:51 Approved by: Oren Seth M.D. on 04/05/2025 at 18:51
--- NOTE | 2025-04-05 18:55 | ED.FALL ---
HPI - Fall General Chief Complaint: Fall Stated Complaint: GLF, hip injury Time Seen by Provider: 04/05/25 18:15 Source: patient and EMS Mode of arrival: EMS History of Present Illness HPI Narrative: 64-year-old female who arrived by ambulance after a ground level fall. She is complaining of left hip pain. He has not anticoagulated did not hit her head, history is of a mechanical fall. EMS assist with the providing history. Related Data Previous Rx's ?Medication ?Instructions ?Recorded Disabled Parking Permit #1 ea 09/12/23 felodipine 10 mg tablet,extended 10 mg PO DAILY #90 tabs 10/28/24 release 24 hr irbesartan 300 0.5 tab PO DAILY #45 tabs 10/28/24 mg-hydrochlorothiazide 12.5 mg tablet trazodone 50 mg tablet 25 mg (1/2 x 50 mg) PO DAILY #90 10/28/24 tabs Allergies Allergy/AdvReac Type Severity Reaction Status Date / Time No Known Drug Allergies Allergy Verified 04/05/25 18:18 Patient History Medical History Aortic stenosis Calcium pyrophosphate deposition disease (CPPD) Cervical myelopathy (~2017) Chronic back pain (~1988) Healthy adult Heavy menstrual period History of abnormal cervical Pap smear Hyperlipidemia Hypertension Idiopathic progressive polyneuropathy Insomnia Murmur Painful menstrual periods Scoliosis Vertigo (~2018) Surgical History Status post cervical spinal fusion Status post laminectomy Social History household members: spouse Smoking Status: Former smoker alcohol intake: never Smoking Status: Former smoker tobacco type: cigarettes alcohol intake frequency: 0-2 drinks per day Exam Narrative Exam Narrative: Head is atraumatic. She is alert and oriented. Vital signs are reviewed, vitals are reassuring. Blood pressure was normal she is afebrile 93% saturated on removing Heart sounds are normal Lungs are clear Pelvis is stable to rock, has pain with any movement of her left lower extremity distal neurovascular exam is intact Initial Vital Signs Initial Vital Signs: Vital Signs Pulse Rate 78 04/05/25 18:12 Pulse Oximetry 97 04/05/25 18:12 Course Orders Ordered: ED Orders 04/05/25 18:01 CBC Auto Diff [Complete Blood Count AUTO DIFF] Stat CMP [Comprehensive Metabolic Panel] Stat Prothrombin Time INR Stat 04/05/25 18:17 XR hip w pel LT 2V Stat 04/05/25 18:49 Consult to Orthopedic Surgery Stat EKG-12 Lead Stat Acetaminophen (Acetaminophen 325 Mg Tablet) 650 mg PO Q6H PRN PRN Reason: Fever/Mild Pain (1-3) Last Admin: 04/05/25 21:05 Dose: 650 mg Documented By: TD Hydromorphone HCl (Hydromorphone 1 Mg/Ml Syringe) 1 mg IV Q3H PRN PRN Reason: Pain, Moderate (7-10) Last Admin: 04/05/25 22:53 Dose: 1 mg Documented By: TD Sodium Chloride (Normal Saline 0.9%) 1,000 mls @ 100 mls/hr IV CONT [facility] Last Admin: 04/05/25 21:04 Dose: 100 mls/hr Documented By: TD Naloxone HCl (Naloxone 0.4 Mg/Ml Vial) 0.2 mg IV Q2MIN PRN PRN Reason: Opiate Reversal Ondansetron HCl (Ondansetron 4 Mg/2 Ml Inj) 4 mg IV Q8HR PRN PRN Reason: Nausea And Vomiting Last Admin: 04/05/25 21:06 Dose: 4 mg Documented By: TD Oxycodone HCl (Oxycodone Ir 5 Mg Tablet) 5 mg PO Q3H PRN PRN Reason: Pain, Moderate (4-6) Last Admin: 04/05/25 21:05 Dose: 5 mg Documented By: TD Promethazine HCl (Promethazine 12.5 Mg Supp) 12.5 mg AL Q6HR PRN PRN Reason: Nausea And Vomiting Sennosides (Sennosides 8.6 Mg Tablet) 17.2 mg PO BEDTIME [facility] Last Admin: 04/05/25 21:04 Dose: 17.2 mg Documented By: TD Trazodone HCl (Trazodone 50 Mg Tablet) 25 mg PO BEDTIME [facility] Last Admin: 04/05/25 22:54 Dose: 25 mg Documented By: TD Discontinued Medications Hydromorphone HCl (Hydromorphone 1 Mg/Ml Syringe) 1 mg IV NOW ONE Stop: 04/05/25 18:15 Last Admin: 04/05/25 18:20 Dose: 1 mg Documented By: ES Morphine Sulfate (Morphine 4 Mg/Ml Inj) 3 mg IV Q2HR PRN PRN Reason: Pain, Severe (7-10) Last Admin: 04/05/25 21:06 Dose: 3 mg Documented By: TD Trazodone HCl (Trazodone 50 Mg Tablet) 25 mg PO DAILY DIANE Consultations Consultation #1: At 7:00 p.m., case is discussed with Orthopedics, Dr. Hobson, will consult Consultation #2: Hospitalist Dr Ryan accepts admission at 19:45 Vital Signs Vital signs: Vital Signs - 8 hr 04/05/25 18:12 04/05/25 18:18 04/05/25 18:50 Temperature 98.3 F Pulse Rate 78 83 83 Respiratory Rate 20 Blood Pressure 147/69 H Pulse Oximetry 97 97 96 Oxygen Delivery Method Room Air 04/05/25 19:00 04/05/25 19:30 Temperature Pulse Rate 77 67 Respiratory Rate Blood Pressure Pulse Oximetry 94 94 Oxygen Delivery Method MDM - Fall Lab Data Lab results narrative: CBC with diff and CMP are unremarkable. Coags are normal 04/05/25 18:01 04/05/25 18:01 Labs: Lab Results 04/05/25 Range/Units 18:01 WBC 6.9 (4.5-11.0) X10^3/uL RBC 4.19 (4.0-5.2) X10^6/uL Hgb 12.8 (12.0-16.0) g/dL Hct 37.4 (36-46) % MCV 89.4 (80-100) fL MCH 30.6 (26-34) PG MCHC 34.2 (30-36) % RDW 13.2 (11.6-14.8) % Plt Count 265 (150-400) X10^3/uL Neut % (Auto) 51.2 (50-75) % Lymph % (Auto) 36.7 (25-40) % [place] % (Auto) 8.0 (3-14) % Eos % (Auto) 2.7 (2-4) % Baso % (Auto) 1.4 (0-2) % Neut # (Auto) 3500 (2767-0158) /uL Lymph # (Auto) 2500 (7385-4312) /uL [place] # (Auto) 600 (0-900) /uL Eos # (Auto) 200 (0-450) /uL Baso # (Auto) 100 (0-100) /uL PT 11.7 (9.4-12.5) SECONDS INR 1.0 (0.9-1.3) Sodium 140 (137-145) mmol/L Potassium 4.3 (3.4-5.1) mmol/L Chloride 108 H (98-107) mmol/L Carbon Dioxide 25 (22-32) mmol/L BUN 39 H (7-17) mg/dL Creatinine 1.04 (0.52-1.04) mg/dL Estimated GFR 60 (>60) mL/min BUN/Creatinine Ratio 37.5 H (6-22) Glucose 93 (70-99) mg/dL Calcium 9.5 (8.4-10.2) mg/dL Total Bilirubin 0.3 (0.2-1.3) mg/dL AST 27 (14-36) IU/L ALT 21 (<35) IU/L Alkaline Phosphatase 76 (38-126) U/L Total Protein 7.2 (6.3-8.2) g/dL Albumin 4.1 (3.5-5.0) g/dL Globulin 3.1 (1.7-4.1) g/dL Albumin/Globulin Ratio 1.3 (1.0-2.8) Imaging Data Extremity x-ray #1: My Impression: Left hip fracture Chest x-ray: My Impression: Independently reviewed chest x-ray, no acute findings Radiologist's Impression: Radiology report indicated no acute findings ECG Data Attestation: I personally reviewed and interpreted this ECG as follows: MDM Narrative Medical decision making narrative: 64-year-old female with left hip pain after ground this up. She has a closed hip fracture distal neurovascular exam is intact. No other injuries were identified she is medically stable, will be admitted to hospitalist service with the orthopedics she is soaking. Discharge Plan Departure Patient Disposition: Admitted As Inpatient Clinical Impression: Closed fracture of left hip Qualifiers: Encounter type: initial encounter Qualified Code(s): S72.002A - Fracture of unspecified part of neck of left femur, initial encounter for closed fracture Admit Date/Time: 04/05/25 19:46 Admit Provider: Ayaan Ryan
[2025-04-05 18:56] LABS: Add Manual Diff / Slide Review NO; Hematocrit 37.4 % (36-46); Hemoglobin 12.8 g/dL (12.0-16.0); Lymphocytes Absolute Auto 2500 /uL (1100-4500); Mean Corpuscular HGB Conc 34.2 % (30-36); Mean Corpuscular Hemoglobin 30.6 PG (26-34); Mean Corpuscular Volume 89.4 fL (80-100); Platelet Count 265 X10^3/uL (150-400)
[2025-04-05 18:58] LABS: INR 1.0 (0.9-1.3); Prothrombin Time 11.7 SECONDS (9.4-12.5)
[2025-04-05 19:05] LABS: Alanine Aminotransferase 21 IU/L (<35); Albumin 4.1 g/dL (3.5-5.0); Albumin Globulin Ratio 1.3 (1.0-2.8); Alkaline Phosphatase 76 U/L (38-126); Blood Urea Nitrogen 39 mg/dL (7-17); Calcium 9.5 mg/dL (8.4-10.2); Carbon Dioxide 25 mmol/L (22-32); Chloride 108 mmol/L (98-107); Estimated Glomerular Filt Rate 60 mL/min (>60); Globulin 3.1 g/dL (1.7-4.1); Glucose 93 mg/dL (70-99); HEMOLYSIS < 15 (0-50); Potassium 4.3 mmol/L (3.4-5.1); Sodium 140 mmol/L (137-145); Total Protein 7.2 g/dL (6.3-8.2)
[2025-04-05] MEDS: SODIUM CHLORIDE 0.9% 1,000 ML 100 ML IV (21:04)
[2025-04-05] MEDS: SENNOSIDES 8.6 MG TABLET 17.2 MG PO (21:04)
[2025-04-05] MEDS: ACETAMINOPHEN 325 MG TABLET 650 MG PO (21:05)
[2025-04-05] MEDS: ONDANSETRON 4 MG/2 ML INJ IV (21:06)
[2025-04-05] MEDS: MORPHINE 4 MG/ML INJ 3 MG IV (21:06)
--- NOTE | 2025-04-05 21:32 | PM.HP.IH.1 ---
History of Present Illness History of Present Illness Date Patient Seen: 04/05/25 Time Patient Seen: 08:45 Chief complaint: GLF, hip injury Narrative: 64-year-old female with left hip pain after a ground level fall on 04/05/2025.? She did have pre-existing left hip pain although it was mild.? She is able to walk for 45 minutes without any assistive devices.? When she does have hip pain her right hip pain hurts more than her left hip.? She had a recent cervical spine surgery from C1- C7 and this is a necessitates that she does not lift anything heavy. 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 Physical exam reveals a well-developed well-nourished 64-year-old in no acute distress Evaluation of her left lower extremity demonstrates that she has a shortened and externally rotated left lower extremity. She fires her tibialis anterior, gastroc soleus, EHL and FHL.? Sensation is intact to light touch in the saphenous, sural, tibial, deep peroneal and superficial peroneal nerve distributions Her dorsalis pedis pulses 2+ and she has brisk capillary refill X-rays obtained of her left hip and AP pelvis on 04/05/2025 demonstrate a displaced femoral neck fracture.? CT scan confirms.? She also has a cyst in her femoral neck. I discussed her x-rays and history and physical exam with Dr. Lau.? I also discussed the risks benefits and alternatives of surgical versus nonsurgical treatment.? I also discussed the risks and benefits of hemiarthroplasty versus total hip arthroplasty with the patient.? I discussed the risks of surgery to include but not limited to damage to arteries, veins, nerves, need for additional surgery, risks of blood clots and risks of pulmonary embolus as well as risks of wound breakdown and infection.? I discussed with her the risks and benefits hip hemiarthroplasty versus total hip arthroplasty to include acetabular wear with a hemiarthroplasty and increased longevity with a total hip arthroplasty. Her questions were answered.? We will plan for total hip arthroplasty on 04/06/2025. NPO after midnight tonight.? Plan for physical therapy and occupational therapy and weight-bearing as tolerated postoperatively. [facility] Medical History Aortic stenosis Calcium pyrophosphate deposition disease (CPPD) Cervical myelopathy (~2018) Chronic back pain (~1988) Healthy adult Heavy menstrual period History of abnormal cervical Pap smear Hyperlipidemia Hypertension Idiopathic progressive polyneuropathy Insomnia Murmur Painful menstrual periods Scoliosis Vertigo (~2018) Surgical History Status post cervical spinal fusion Status post laminectomy Social History household members: spouse Smoking Status: Former smoker alcohol intake: never Meds Home Medications and Allergies Home Medications ?Medication ?Instructions ?Recorded ?Confirmed ?Type Disabled Parking Permit #1 ea 09/12/23 04/05/25 Rx felodipine 10 mg tablet,extended 10 mg PO DAILY #90 tabs 10/28/24 04/05/25 Rx release 24 hr irbesartan 300 0.5 tab PO DAILY #45 tabs 10/28/24 04/05/25 Rx mg-hydrochlorothiazide 12.5 mg tablet trazodone 50 mg tablet 25 mg (1/2 x 50 mg) PO DAILY #90 10/28/24 04/05/25 Rx tabs Allergies Allergy/AdvReac Type Severity Reaction Status Date / Time No Known Drug Allergies Allergy Verified 04/05/25 18:18 Exam Vital Signs (past 8 hours): - 04/05/25 18:12 04/05/25 18:18 04/05/25 18:50 Temperature 98.3 F Pulse Rate 78 83 83 Respiratory Rate 20 Blood Pressure 147/69 H Pulse Oximetry 97 97 96 Oxygen Delivery Method Room Air Oxygen Flow Rate 04/05/25 19:00 04/05/25 19:30 04/05/25 20:00 Temperature Pulse Rate 77 67 68 Respiratory Rate Blood Pressure Pulse Oximetry 94 94 94 Oxygen Delivery Method Oxygen Flow Rate 04/05/25 20:35 04/05/25 21:16 Temperature 99.1 F Pulse Rate 68 81 Respiratory Rate 20 Blood Pressure 128/80 Pulse Oximetry 93 93 Oxygen Delivery Method Oxygen Flow Rate 0 Oxygen Delivery Method Room Air Oxygen Flow Rate 0 Objective Labs 04/05/25 18:01 04/05/25 18:01 Labs: Laboratory Results - last 24 hr 04/05/25 18:01 WBC 6.9 RBC 4.19 Hgb 12.8 Hct 37.4 MCV 89.4 MCH 30.6 MCHC 34.2 RDW 13.2 Plt Count 265 Neut % (Auto) 51.2 Lymph % (Auto) 36.7 [place] % (Auto) 8.0 Eos % (Auto) 2.7 Baso % (Auto) 1.4 Neut # (Auto) 3500 Lymph # (Auto) 2500 [place] # (Auto) 600 Eos # (Auto) 200 Baso # (Auto) 100 PT 11.7 INR 1.0 Sodium 140 Potassium 4.3 Chloride 108 H Carbon Dioxide 25 BUN 39 H Creatinine 1.04 Estimated GFR 60 BUN/Creatinine Ratio 37.5 H Glucose 93 Calcium 9.5 Total Bilirubin 0.3 AST 27 ALT 21 Alkaline Phosphatase 76 Total Protein 7.2 Albumin 4.1 Globulin 3.1 Albumin/Globulin Ratio 1.3 Assessment & Plan Assessment and plan (1) Closed fracture of left hip: Qualifiers: Encounter type: initial encounter Qualified Code(s): S72.002A - Fracture of unspecified part of neck of left femur, initial encounter for closed fracture Status: Acute Plan I discussed her x-rays and history and physical exam with Dr. Lau.? I also discussed the risks benefits and alternatives of surgical versus nonsurgical treatment.? I also discussed the risks and benefits of hemiarthroplasty versus total hip arthroplasty with the patient.? I discussed the risks of surgery to include but not limited to damage to arteries, veins, nerves, need for additional surgery, risks of blood clots and risks of pulmonary embolus as well as risks of wound breakdown and infection.? I discussed with her the risks and benefits hip hemiarthroplasty versus total hip arthroplasty to include acetabular wear with a hemiarthroplasty and increased longevity with a total hip arthroplasty. Her questions were answered.? We will plan for total hip arthroplasty on 04/06/2025. - NPO after midnight tonight.? - Plan for physical therapy and occupational therapy and weight-bearing as tolerated postoperatively. Time-Based Coding :: [TOTAL MINUTES] spent with patient and on the chart (including review of chart, obtaining history, exam, reviewing outside data, placing orders, documenting exam and treatment plan, and counseling patient) on [DATE]. PROFEE Guest Laundry Attendant Document charge(s): Yes
--- NOTE | 2025-04-05 22:24 | PM.HP.1 ---
History of Present Illness History of Present Illness Date Patient Seen: 04/05/25 Time Patient Seen: 22:24 Chief complaint: GLF, hip injury Narrative: The pt is a 64 yo who presents to the ER with a left femoral neck fracture after she fell at home. She states tshe was walking to the bathroom when she turned around and fell. There was no head injury, no LOC, She does have chronic back pain with neuropathy due to a cervical fracture 2 years ago, she quit smoking 2 years ago and has a > 40 pk yr hx. Sometimes uses a cane to walk at home, has a walker at home but doesn't use it. [facility] Medical History Aortic stenosis Calcium pyrophosphate deposition disease (CPPD) Cervical myelopathy (~2017) Chronic back pain (~1988) Healthy adult Heavy menstrual period History of abnormal cervical Pap smear Hyperlipidemia Hypertension Idiopathic progressive polyneuropathy Insomnia Murmur Painful menstrual periods Scoliosis Vertigo (~2018) Surgical History Status post cervical spinal fusion Status post laminectomy Social History household members: spouse Smoking Status: Former smoker alcohol intake: never Meds Home Medications and Allergies Home Medications ?Medication ?Instructions ?Recorded ?Confirmed ?Type Disabled Parking Permit #1 ea 09/12/23 04/05/25 Rx felodipine 10 mg tablet,extended 10 mg PO DAILY #90 tabs 10/28/24 04/05/25 Rx release 24 hr irbesartan 300 0.5 tab PO DAILY #45 tabs 10/28/24 04/05/25 Rx mg-hydrochlorothiazide 12.5 mg tablet trazodone 50 mg tablet 25 mg (1/2 x 50 mg) PO DAILY #90 10/28/24 04/05/25 Rx tabs Allergies Allergy/AdvReac Type Severity Reaction Status Date / Time No Known Drug Allergies Allergy Verified 04/05/25 18:18 Exam Vital Signs (past 8 hours): - 04/05/25 18:12 04/05/25 18:18 04/05/25 18:50 Temperature 98.3 F Pulse Rate 78 83 83 Respiratory Rate 20 Blood Pressure 147/69 H Pulse Oximetry 97 97 96 Oxygen Delivery Method Room Air Oxygen Flow Rate 04/05/25 19:00 04/05/25 19:30 04/05/25 20:00 Temperature Pulse Rate 77 67 68 Respiratory Rate Blood Pressure Pulse Oximetry 94 94 94 Oxygen Delivery Method Oxygen Flow Rate 04/05/25 20:35 04/05/25 21:16 Temperature 99.1 F Pulse Rate 68 81 Respiratory Rate 20 Blood Pressure 128/80 Pulse Oximetry 93 93 Oxygen Delivery Method Oxygen Flow Rate 0 Oxygen Delivery Method Room Air Oxygen Flow Rate 0 Const General: cooperative, healthy appearing and comfortable Other: Due to equipment failure, I was unable to exam the pt, but was able to visually inspect the pt. Objective Labs 04/05/25 18:01 04/05/25 18:01 Labs: Laboratory Results - last 24 hr 04/05/25 18:01 WBC 6.9 RBC 4.19 Hgb 12.8 Hct 37.4 MCV 89.4 MCH 30.6 MCHC 34.2 RDW 13.2 Plt Count 265 Neut % (Auto) 51.2 Lymph % (Auto) 36.7 [place] % (Auto) 8.0 Eos % (Auto) 2.7 Baso % (Auto) 1.4 Neut # (Auto) 3500 Lymph # (Auto) 2500 [place] # (Auto) 600 Eos # (Auto) 200 Baso # (Auto) 100 PT 11.7 INR 1.0 Sodium 140 Potassium 4.3 Chloride 108 H Carbon Dioxide 25 BUN 39 H Creatinine 1.04 Estimated GFR 60 BUN/Creatinine Ratio 37.5 H Glucose 93 Calcium 9.5 Total Bilirubin 0.3 AST 27 ALT 21 Alkaline Phosphatase 76 Total Protein 7.2 Albumin 4.1 Globulin 3.1 Albumin/Globulin Ratio 1.3 Assessment & Plan Assessment & Plan narrative: I have discussed with the Er provider the pt's presenting symptoms, labs, imaging and agree with the decision for admission. I have personally reviewed the labs, showing a normal BMP & CBC, I have also reviewed the X-ray showing the fracture of the left femur. Orthopedic surgery has been consulted and will evaluate the pt in the morning, she is currently on IVF, IV + PO narcotics for pain control, we are changing the morphine to Dilaudid since she states morphine normally doesn't work for her. NPO after midnight. I, Dr. Ayaan Ryan in [place] has seen and evaluted Alis Barbosa in [place] using telemedicine audio and video with the patient's consent and nursing assistance. Time-Based Coding :: [TOTAL MINUTES] spent with patient and on the chart (including review of chart, obtaining history, exam, reviewing outside data, placing orders, documenting exam and treatment plan, and counseling patient) on [DATE].
[2025-04-06] VITALS (19 sets, daily range): BP systolic 100–141; BP diastolic 55–86; PULSE 65–113; RESP 11–20; TEMP 36.7–37.2; O2SAT 90–98
--- NOTE | 2025-04-06 | DI.RAD.S_ITS ---
PROCEDURE: XR HIP W PEL IF DONE LT 2V INDICATIONS: Left Hip HIEN TECHNIQUE: Intraoperative fluoroscopic examination. 22 images submitted. COMPARISON: [facility], CR, XR HIP W PEL LT 2V, 04/05/2025, 18:20. FINDINGS: Intraoperative fluoroscopic examination demonstrating left total hip arthroplasty. IMPRESSION: As above Dictated by: Nick Monteiro M.D. on 04/06/2025 at 13:20 Approved by: Nick Monteiro M.D. on 04/06/2025 at 13:21
--- NOTE | 2025-04-06 | DI.RAD.S_ITS ---
PROCEDURE: XR HIP W PEL IF DONE LT 2V INDICATIONS: Post op HIEN TECHNIQUE: Two views COMPARISON: [facility], CR, XR HIP W PEL LT 2V, 04/06/2025, 11:26. FINDINGS: Acute postsurgical changes of left total hip arthroplasty. No hardware failure. No fracture or dislocation. Clips project over the pelvis. Mild degenerative changes of the right hip. IMPRESSION: Left total hip arthroplasty. Dictated by: Nick Monteiro M.D. on 04/06/2025 at 14:01 Approved by: Nick Monteiro M.D. on 04/06/2025 at 14:03
--- NOTE | 2025-04-06 | PATH_ITS ---
[facility] Accession Number: [id number] No. of containers..02 Tissue . 01 Material submitted: . PART A: femur - LEFT FEMORAL NECK PART B: femur - LEFT FEMORAL HEAD . 01 Diagnosis: A. LEFT FEMORAL NECK, CURETTINGS: Fragments of trabecular bone with changes secondary to fracture, in a background of osteopenia, degenerative changes, and scant intramedullary hematopoietic elements. Negative for malignancy. . B. LEFT FEMORAL HEAD, EXCISION: Trabecular bone with degeneration and changes secondary to fracture, in a background of osteopenia. Mature trilineage hematopoietic marrow also present. Negative for malignancy. MRV 04/15/2025 1754 Local . 01 Electronically signed: . Traci Lilly MD, Pathologist NPI- [id number] . 01 Gross description: . A. Received in formalin with two patient identifiers, and left femoral neck is a 4.5 x 4.5 x 2.6 cm aggregate of brown, markedly disrupted bone fragments. Orientation cannot be determined. Dictating Transcribing Machine Servicer sections are submitted in A1 following decalcification. B. Received in formalin with two patient identifiers, and left femoral head is a 4.5 x 4.5 x 3.8 cm spherical portion of bone. The proximal margin is jagged and hemorrhagic (inked black). The articular surface is eroded with multiple areas of disruption and approximately 10% eburnation. The cut surface is yellow-red and moderately hemorrhagic. A discrete mass or lesion sis not grossly identified. The cortex is 0.2 cm thick. Dictating Transcribing Machine Servicer sections are submitted in B1-B2 following decalcification. ([id number]) /MRV 04/08/2025 1649 Local . 01 Pathologist provided ICD-10: S72.002A . 01 CPT . 154873, 293979, 123509, 246417 Specimen Comment: A courtesy copy of this report has been sent to [facility] Pathology Performed at: [address] [id number] MD Francisco J Calderon MD Phone: [phone]
[2025-04-06] MEDS: SODIUM CHLORIDE 0.9% 1,000 ML 100 ML IV ×2 (06:46→22:27)
--- NOTE | 2025-04-06 07:29 | P.PN_ITS ---
Subjective Subjective Interval history: Summary: The pt is a 64 yo who presents to the ER with a left femoral neck fracture after she fell at home. She states tshe was walking to the bathroom when she turned around and fell. There was no head injury, no LOC, She does have chronic back pain with neuropathy due to a cervical fracture 2 years ago, she quit smoking 2 years ago and has a > 40 pk yr hx. Sometimes uses a cane to walk at home, has a walker at home but doesn't use it. S: She was doing well, having minimal pain. She was on oxygen, was desaturating while in the PACU. She also was having intermittent probable atrial fibrillation with RVR. O: VSS. NAD, alert and oriented. Fluent speech. Lungs are clear, normal rate and effort. Heart is regular, systolic murmur and no gallop or rub. Abdomen is soft, non distended. Extremities are free of edema. A/P: 1. Left hip fracture, active. 2. Hypertension, active. 3. Acute hypoxic respiratory failure, active. 4. Probable PAF with RVR, active. PLAN: -operative repair per Orthopedics. -monitor blood pressure -pain control -postoperative DVT prophylaxis -telemetry to monitor rhythm -wean oxygen as able Full resuscitation Anticipate 2 midnights in the hospital, supports inpatient status. Exam Vital Signs (past 8 hours): Oxygen Delivery Method Room Air Oxygen Flow Rate 0 Objective Labs 04/05/25 18:01 04/05/25 18:01 Labs: Laboratory Results - last 24 hr 04/05/25 18:01 WBC 6.9 RBC 4.19 Hgb 12.8 Hct 37.4 MCV 89.4 MCH 30.6 MCHC 34.2 RDW 13.2 Plt Count 265 Neut % (Auto) 51.2 Lymph % (Auto) 36.7 [place] % (Auto) 8.0 Eos % (Auto) 2.7 Baso % (Auto) 1.4 Neut # (Auto) 3500 Lymph # (Auto) 2500 [place] # (Auto) 600 Eos # (Auto) 200 Baso # (Auto) 100 PT 11.7 INR 1.0 Sodium 140 Potassium 4.3 Chloride 108 H Carbon Dioxide 25 BUN 39 H Creatinine 1.04 Estimated GFR 60 BUN/Creatinine Ratio 37.5 H Glucose 93 Calcium 9.5 Total Bilirubin 0.3 AST 27 ALT 21 Alkaline Phosphatase 76 Total Protein 7.2 Albumin 4.1 Globulin 3.1 Albumin/Globulin Ratio 1.3 PFSH Medical History Aortic stenosis Calcium pyrophosphate deposition disease (CPPD) Cervical myelopathy (~2017) Chronic back pain (~1988) Healthy adult Heavy menstrual period History of abnormal cervical Pap smear Hyperlipidemia Hypertension Idiopathic progressive polyneuropathy Insomnia Murmur Painful menstrual periods Scoliosis Vertigo (~2018) Surgical History Status post cervical spinal fusion Status post laminectomy Social History household members: significant other Smoking Status: Former smoker alcohol intake: never Assessment & Plan Time-Based Coding :: [TOTAL MINUTES] spent with patient and on the chart (including review of chart, obtaining history, exam, reviewing outside data, placing orders, documenting exam and treatment plan, and counseling patient) on [DATE].
--- NOTE | 2025-04-06 09:33 | SUR.OPER ---
Patient supine on padded Gary table, one arm on padded arm board at <90, other arm padded and secured with tape across patient's chest, both legs secured in padded traction boots and positioned per surgeon, padded post at patient's groin, pressure points checked and padded. Final positioning done by provider
--- NOTE | 2025-04-06 09:49 | PM.HP.IH.1 ---
History of Present Illness History of Present Illness Chief complaint: GLF, hip injury Narrative: CHIEF COMPLAINT - Displaced left femoral neck fracture. HISTORY OF PRESENT ILLNESS Nicolás Barbosa presented after sustaining a fall at home, resulting in a displaced left femoral neck fracture. She described losing balance in the hallway, where there was nothing to grab onto, leading to her fall. Her pain is localized to the left hip. The pain is exacerbated by movement and partially alleviated by rest. The pain has been present since the fall and does not radiate. PERTINENT PAST MEDICAL HISTORY - Hyperlipidemia - Hypertension - Polyneuropathy - Mild aortic stenosis - History of pseudogout - Possible diagnosis of calcium pyrophosphate disease (CPPD) PERTINENT PAST SURGICAL HISTORY - Cervical spine fusion (C1-C7) in March 2023 PERTINENT MEDICATIONS - Not on blood thinners SOCIAL HISTORY - Lives with boyfriend and daughter - Former smoker, quit two years ago after more than a 40-year pack history - Uses a walker occasionally, especially after neck surgery - Enjoys gardening - Works in an office setting PHYSICAL EXAM - Constitutional: Mentating appropriately, conversant, not in acute distress - Musculoskeletal: Holds left hip in an externally rotated position, able to flex and extend hallux and ankle - Neurological: Reports paresthesias diffusely throughout the entire left lower extremity, extending from the foot up into the olivares, which has been present for years IMAGING - AP pelvis and lateral left hip radiograph from April 05 shows a left femoral neck fracture, with complete displacement of the fracture fragments and external rotation through the femur. - CT scan from April 05 shows the same femoral neck fracture as well as a cyst in the superior aspect of the femoral neck. It is well circumscribed and does not appear to have eroded into the cortical bone. It is small and appears to have been just proximal to the fracture site. ASSESSMENT 64 year old slender female former smoker with a displaced left femoral neck fracture in the setting of pre-existing polyneuropathy effecting the left lower extremity and CT scan findings showing a cyst in the femoral neck at the fracture site. PLAN - Proceed with cemented left total hip arthroplasty. Send femoral neck specimen to pathology for evaluation of the cyst observed during preoperative imaging. Cyst is located directly at the fracture site and could have been a causative factor in the fracture. I discussed with the patient that this could represent a pathologic fracture but that I would not recommend delaying care given the presence of a fracture. Her only history of malignancy is a skin cancer (she is unsure which variety) that was resected from her ear last year. - The risks and benefits of surgery were discussed with the patient at length, and understanding her options, she wishes to proceed with surgery. All of her questions were answered. - Surgery is planned for today, 2025-04-06. - Risks discussed include medical complications, need for additional surgery, damage to surrounding structures, and infection. - Postoperative plan includes early mobilization with anticipated weight-bearing as tolerated. - Hopeful she will mobilize well enough for discharge home with support from her boyfriend and daughter after a short hospital stay. - Nutritional consult postoperatively given very slender body habitus. Recommend patient obtain Mend perioperative nutrition supplements to help with healing from this surgery - Prophylactic cefadroxil postoperatively given elevated risk for periprosthetic joint infection (40 year smoking history with recent cessation, possible rheumatoid arthritis, suspected malnutrition) - Please play the perioperative total hip counseling videos on the [employer] channel ( [email or web address] ) postoperatively in the patient's hospital room to provide additional counseling to her regarding her surgery [facility] Medical History Aortic stenosis Calcium pyrophosphate deposition disease (CPPD) Cervical myelopathy (~2017) Chronic back pain (~1988) Healthy adult Heavy menstrual period History of abnormal cervical Pap smear Hyperlipidemia Hypertension Idiopathic progressive polyneuropathy Insomnia Murmur Painful menstrual periods Scoliosis Vertigo (~2018) Surgical History Status post cervical spinal fusion Status post laminectomy Social History household members: spouse Smoking Status: Former smoker alcohol intake: never Meds Home Medications and Allergies Home Medications ?Medication ?Instructions ?Recorded ?Confirmed ?Type Disabled Parking Permit #1 ea 09/12/23 04/05/25 Rx felodipine 10 mg tablet,extended 10 mg PO DAILY #90 tabs 10/28/24 04/05/25 Rx release 24 hr irbesartan 300 0.5 tab PO DAILY #45 tabs 10/28/24 04/05/25 Rx mg-hydrochlorothiazide 12.5 mg tablet trazodone 50 mg tablet 25 mg (1/2 x 50 mg) PO DAILY #90 10/28/24 04/05/25 Rx tabs Allergies Allergy/AdvReac Type Severity Reaction Status Date / Time No Known Drug Allergies Allergy Verified 04/06/25 09:40 Exam Vital Signs (past 8 hours): - 04/06/25 08:05 Temperature 98.9 F Pulse Rate 65 Respiratory Rate 20 Blood Pressure 109/61 Pulse Oximetry 90 L Oxygen Flow Rate 0 Oxygen Delivery Method Room Air Oxygen Flow Rate 0 Objective Labs 04/05/25 18:01 04/05/25 18:01 Labs: Laboratory Results - last 24 hr 04/05/25 18:01 WBC 6.9 RBC 4.19 Hgb 12.8 Hct 37.4 MCV 89.4 MCH 30.6 MCHC 34.2 RDW 13.2 Plt Count 265 Neut % (Auto) 51.2 Lymph % (Auto) 36.7 [place] % (Auto) 8.0 Eos % (Auto) 2.7 Baso % (Auto) 1.4 Neut # (Auto) 3500 Lymph # (Auto) 2500 [place] # (Auto) 600 Eos # (Auto) 200 Baso # (Auto) 100 PT 11.7 INR 1.0 Sodium 140 Potassium 4.3 Chloride 108 H Carbon Dioxide 25 BUN 39 H Creatinine 1.04 Estimated GFR 60 BUN/Creatinine Ratio 37.5 H Glucose 93 Calcium 9.5 Total Bilirubin 0.3 AST 27 ALT 21 Alkaline Phosphatase 76 Total Protein 7.2 Albumin 4.1 Globulin 3.1 Albumin/Globulin Ratio 1.3 Assessment & Plan Time-Based Coding :: [TOTAL MINUTES] spent with patient and on the chart (including review of chart, obtaining history, exam, reviewing outside data, placing orders, documenting exam and treatment plan, and counseling patient) on [DATE]. [employer]EE Fitness Attendant Document charge(s): Yes
[2025-04-06] MEDS: LACTATED RINGERS 1,000 ML 42 ML IV (09:54)
[2025-04-06] MEDS: TRANEXAMIC ACID 1,000 MG in SODIUM CHLORIDE 0.9% 100 ML 200 MG IV ×2 (10:36→12:32)
[2025-04-06] MEDS: ACETAMINOPHEN IV 1,000 MG/100 ML VIAL 400 MG IV (12:42)
--- NOTE | 2025-04-06 12:42 | P.OP_ITS ---
Operative Date/Time/Diagnoses Date of procedure: 04/06/25 Time of procedure: 11:00 Pre-op diagnosis: Displaced left femoral neck fracture Post-op diagnosis: same Procedure & Clinicians Procedure: Left total hip arthroplasty Same procedure(s) as scheduled: Yes Surgeon: Antwan Lau Assisted?: Yes Package Center Supervisor: Gilma Krishnamurthy Anesthesia Type: General and Local Operative Notes Findings: Displaced left femoral neck fracture Closure Type: primary Specimen(s): other (Femoral neck sent for pathological analysis as well as a separate sample for the femoral head) Applied: implant(s) Estimated Blood Loss (mL): 150 Blood products transfused: none Procedure in detail: Left Cemented Direct Anterior Depuy Total Hip Arthroplasty: Implants: * Emir G7 size 50 cup? * Cemented Avenir femoral stem size 3 high offset? * 36 mm -3.5 ceramic femoral head Procedure Summary: This 64-year-old female patient is very slender and a former smoker. She weighs only 105 lb. She sustained a displaced femoral neck fracture in a fall at home. Given her age and lack of known severe medical comorbidities I recommended a total hip arthroplasty to limit the long-term risk of acetabular erosions. Her bone quality was poor and I was able to open up the canal for femoral broaching with a [employer] suction tip. I initially trialed with a size 2 high offset and upsized to a size 3 for final implant insertion after noting that the size 2 broach was rotationally unstable. The final ortho grid overlay images demonstrated nearly identical leg lengths and offset between the 2 sides. She was very flexible throughout the case with no conjoined tendon release required to access the femur and 140? of external rotation after final implant insertion was possible. Her hip did not dislocate when I rotated her all the way out to 140?. Procedure in Detail: This patient was seen preoperatively and evaluated for hip pain which was refractory to numerous nonoperative treatment modalities. Their hip pain correlated with radiographic changes demonstrating significant degeneration in the hip joint. The risks and benefits of continued nonoperative management versus operative management were discussed at length and all of the patient?s questions were answered. Additional educational materials providing further details beyond our discussion in clinic were provided via a publicly available patient education video which included the incidence of medical complications associated with total hip arthroplasty, reasons for revision following total hip arthroplasty, and patient satisfaction rates following total hip arthroplasty. With this understanding of the risks inherent to the procedure, the patient elected to move forward with operative management. Following preoperative optimization, the patient was scheduled for surgery. The patient was met in the preoperative holding area the day of the procedure and all questions were answered. The patient?s nares were swabbed in order to decolonize them from MRSA. Informed consent was signed and the left limb was marked with indelible ink.? The patient was brought back to the operating room where anesthesia was induced. The patient was transferred to the Welcome table and all bony prominences were padded. The operative site was prepped and draped in the usual sterile fashion. Prior to incision, tranexamic acid and cefazolin were administered. Operative templating images were displayed demonstrating the anticipated implant sizes and correct operative extremity. A timeout procedure was performed verifying the patient?s identity, medical comorbidities, allergies, relevant medications, anesthesia type and the surgical plan. All present were in agreement. The assistance of a physician temporary administrative assistant was required for positioning, room setup, soft tissue retraction and wound closure. Without this assistance, the procedure would have been significantly more challenging and time consuming.?? A direct anterior approach to the hip was utilized. This was performed with a longitudinal incision through a Heuter interval. The incision was planned 2 cm distal and 2 cm lateral to the ASIS extending towards the lateral patella, in line with the muscle body of the TFL. Following incision, the subcutaneous tissue was dissected while taking care to avoid injury to the lateral femoral cutaneous nerve. The fascia overlying the TFL was identified by dissecting off the overlying fat and identifying perforating vessels to the TFL. The TFL fascia was incised and dissected away from the medial border of the TFL. A retractor was placed over the superior femoral neck between the abductors and the hip capsule and used to reflect the TFL laterally. A Douglas self-retainer was then placed in the distal aspect of the wound between the TFL and the rectus femoris. This was tensioned to open up the direct anterior interval and the lateral circumflex vessels were identified and coagulated using electrocautery. The floor of the TFL fascia was incised, exposing the pericapsular fat overlying the hip capsule. A second cobra retractor was placed on the inferior femoral neck. A retractor was placed on the anterior wall of the acetabulum and used to tension the reflected head of rectus femoris, which was then released in order to limit soft tissue tension. A capsulotomy was made in the midline of the anterior hip capsule in line with the femoral neck ending at the vastus tubercle. The anterior retractor was removed as soon as the capsulotomy was completed in order to limit the amount of time that a soft tissue retractor remained on the anterior wall and limit tension on the femoral nerve. Tag stitches were placed in the superior and inferior leaflets of the hip capsule. An Douglas soft tissue retractor was introduced over the tag stitches and tensioned in the interval between the rectus femoris and the TFL in order to retract and protect those muscles. The cobra retractors were replaced intracapsularly, with one over the superior neck in the pocket created by the base of the greater trochanter and the other on the femoral head. The capsulotomy was extended laterally to the base of the greater trochanter and medially to the lesser trochanter. This required externally rotating the hip. Once the lesser trochanter had been identified, a neck cut was planned according to measurements from preoperative templating. A ruler was cut at the length measured between the superior aspect of the lesser trochanter and the collar of the prosthesis. This line was extended towards the inferior aspect of the lateral cobra retractor to plan a cut which would leave minimal residual femoral neck laterally. The neck was cut at 60 degrees of external rotation along that line. A second cut was performed to remove a large napkin ring and facilitate head extraction. The napkin ring cut and femoral head were removed.?? A broad anterior wall retractor was placed between the labrum and the anterior capsule so that the anterior capsule would prevent capturing and pinching the femoral nerve anteriorly. An additional retractor was placed on the posterior wall. External rotation and traction were applied through the Welcome table so that the cut surface of the femoral neck would not restrict access to the acetabulum. The labrum was excised sharply and the pulvinar was excised with electrocautery to limit bleeding from branches of the obturator artery. Acetabular reamers were selected based on preoperative templating and measurements of the excised femoral head. These were introduced into the acetabulum. Fluoroscopy was utilized to replicate a standing AP pelvis radiograph by centering over the pelvis, rotating until there was appropriate symmetry between the obturator foramen, and introducing caudal tilt to match the position of the pubic sym physis relative to the sacrococcygeal junction according to the patient?s anatomy. Once satisfied with the reaming depth corresponding to the preoperative template and the pinch fit between the columns, an appropriate sized acetabular cup was selected which would provide 1 mm of press-fit. This cup was introduced and manipulated until appropriate abduction and anteversion angles were obtained with careful attention to appropriate abduction and anteversion angles as evaluated by the position of the cup relative to the anterior and posterior liao of the acetabulum and the AP fluoroscopy which recreated the patient?s standing radiograph. The cup was impacted into place. Peripheral osteophytes were removed. The acetabular liner was then placed with care to ensure locking of the locking mechanism. Attention was then turned to the femur. All retractors were removed, traction was released, a retractor was placed in the interval between the hip capsule and the gluteus minimus. The lateral capsule was released using electrocautery. Traction was released and a Welcome hook was placed posteriorly around the proximal femur at the level of the vastus ridge. The table height was lowered in order to restrict the tension on the anterior structures during hip hyperextension to limit the risk of femoral nerve palsy. With traction off and the hip at 90 degrees of external rotation, the hip was hyperextended and adducted while manually elevating the femur away from the acetabulum with the Welcome hook to avoid hooking the greater trochanter on the pelvis. An asymmetric retractor was placed over the calcar and a broad double-pronged retractor was placed over the greater trochanter. The tag stitch capturing the lateral leaflet of the capsule was moved to the medial side, leaving the conjoined and piriformis tendons isolated in the face of the greater trochanter. The hip was externally rotated and elevated. A release of the conjoined tendon was not necessary in order to obtain adequate exposure for broaching. The canal was opened with an opening broach and a rasp was used to remove cancellous bone. A rongeur was used to remove the residual lateral bone at the base of the greater trochanter to avoid placing the stem in varus. The femur was then broached to the appropriate sized stem yielding good rotational fit and fill of the canal as well as appropriate version of the stem trial. Neck and head trials were placed, all retractors were removed and the hip was returned to neutral abduction and extension. I then reduced the hip and manually trialed it before changing surgical gloves. Initial trialing was performed with a size 2 broach, a high offset neck and a +0 head. I initially manually externally rotated the hip and found no instability. I then locked the hip in 45 degrees of external rotation and dropped it to the floor with traction off which demonstrated no instability. An ortho grid overlay image was obtained which demonstrated that the operative side was significantly long and had a slight increase in offset compared to the other side. I downsized to a-3.5 head. This had approximately 1 mm less offset than the contralateral side but was still long.. The hip was dislocated and I returned to the broaching position. Based on my evaluation during initial trialing I planned to sink the size 2 broach further down the canal to further decrease my length and upsize to a +0 head. I found that the size 2 broach was rotationally unstable so I upsized to a size 3 broach and sink that approximately 5 mm down the canal. I calcar planed at that location. I had planned to place a +0 head. I then prepared for cementation. Prior to cementation I irrigated the canal, placed a cement restrictor, irrigated the canal again, placed epinephrine-soaked vaginal packing with a whistle-tip catheter, and removed the whistle-tip catheter after insertion of cement. The definitive stem was placed. I malleted the stem down but it did not sink all the way to the point where I had calcar planed and so I therefore anticipated that I had not gotten as much length out of the construct as I had with the broach which had sink down to 5 mm. I therefore anticipated that I would need to transition to a-3.5 head. I placed the-3.5 head after cement had been allowed to dry. I brought the hip back to neutral extension and reduced the hip. Trialing at this point in time de monstrated that she could externally rotate to 140? without dislocating. A 45 degree drop test did not result in dislocation. The ortho grid overlay image demonstrated nearly identical leg lengths and offset as compared to the contralateral side. I therefore inserted a -3.5 head. The trunnion was cleaned and dried. I placed a ceramic head onto the trunnion and impacted it into place on the Mauro taper.?? All retractors were removed and the hip was reduced. A dilute mixture of betadine and peroxide was used to bathe the soft tissues during final fluoroscopic assessment. Appropriate component positioning was confirmed on an AP pelvis radiograph with the operative and nonoperative legs in 40 degrees of external rotation, evaluating leg length and offset. Appropriate stem fill was evaluated on AP and lateral hip radiographs. No previously unrecognized fractures were identified on these radiographs. There was no hip instability with maximum (140 degree) external rotation as well as a 45 degree drop test. The hip was copiously irrigated with pulse lavage. The capsule was closed with absorbable interrupted suture. The TFL fascia was closed with barbed suture while carefully protecting the lateral femoral cutaneous nerve from entrapment. A mixture of Ropivacaine, Epinephrine and Toradol was infiltrated throughout the soft tissues. The skin was closed with 2-0 and 3-0 sutures. Surgical glue was applied and a soft dressing was placed.??The sponge, instrument and needle counts were reported as being correct at the end of the case.??No obvious complications occurred. The patient was transferred from the Welcome table back to a stretcher. The patient emerged from anesthesia without difficulty and was taken to the PACU in a stable condition.? Plan for aftercare: * No hip precautions * Weightbearing as tolerated * Recommend aspirin 81 mg twice per day for DVT prophylaxis * Hopeful she will mobilize well enough for discharge home with support from her boyfriend and daughter after a short hospital stay. * Nutritional consult postoperatively given very slender body habitus. Recommend patient obtain Mend perioperative nutrition supplements to help with healing from this surgery * Prophylactic cefadroxil postoperatively given elevated risk for periprosthetic joint infection (40 year smoking history with recent cessation, possible rheumatoid arthritis, suspected malnutrition) * Please play the perioperative total hip counseling videos on the [email or web address] channel ( [email or web address] ) postoperatively in the patient's hospital room to provide additional counseling to her regarding her surgery * Follow up at [facility] in 2 weeks Complications: none Post-operative Condition: stable Disposition: Acute Care
--- NOTE | 2025-04-06 13:02 | CM.DANOTE ---
Initial DCP Assessment Visit Note Reviewed EMR and team rounds for pt's medical status and updates. Went to meet with pt, however she was found to be sleeping at the time of this visit. Pt resides independently in her own home in [place] with her Significant Other. He will also transport her home at the time of d/c, unless therapies feel that she will need a SNF rehab at d/c-pending post-surgery assessments and recs. Payor: Medicare PCP: Dr. Edwards Pt is a 64 year-old F who presented to [facility] ED via EMS following a GLF, resulting in acute L-hip pain, and closed hip fracture. Decision was made to make her NPO and admit for further Ortho consult in the am. Plan is for surgery today at 2:00pm. DCP will continue to follow for post-op d/c needs and recommendations. Discharge Planning/Care Management Advanced directive, confirm from FAMILY Start: 04/05/25 21:42 Freq: Q24H Status: Active Protocol: Document 04/05/25 21:42 TD (Rec: 04/06/25 01:03 TD [id number]) Co-signed By Nereida Gonzalez RN Advance Directive, confirm on record Time 21:00 Person contacted carlos Oliov received No CM Discharge Assessment Start: 04/05/25 20:25 Freq: Status: Active Protocol: Document 04/06/25 12:59 DPL (Rec: 04/06/25 13:02 DPL [id number]) Discharge Planning Assessment Assigned Discharge FARHAN Rose Pipe Setter Provider Dr. Edwards Insurance Medicare Advance Directives? Yes Advance Directives No on File History Provided By Medical Record Expected Length of 3 Stay Has Patient been No admitted in last 30 days? Prior Living House Arrangements Household Members significant other Type of Drives own vehicle transporation used prior to admit Independent with ADL Yes 's Is patient alert and Yes oriented? Caregiver for No Another Comment Pending post-surgery PT/OT assessments and recs. Barriers to No Discharge Discharge Plan Home Transportation Sig. Other Arrangement Additional Comment Pending Whiteboard Updated Yes in Patient Room with name and ext. # of Blanket Washer Review Status In Process Please Provide Date 04/06/25 Initial DC Assessment Was Performed
--- NOTE | 2025-04-06 13:27 | DI.RAD.S_ITS ---
PROCEDURE: XR ANKLE RT 2V INDICATIONS: Post surgical TECHNIQUE: Two views COMPARISON: None. FINDINGS: Bones: No fractures or dislocations. Ankle mortise is normally aligned. No suspicious bony lesions. Soft tissues: No tibiotalar joint effusion. Achilles tendon appears normal. IMPRESSION: No acute bony abnormality or significant effusion. Dictated by: Nick Monteiro M.D. on 04/06/2025 at 14:03 Approved by: Nick Monteiro M.D. on 04/06/2025 at 14:05
--- NOTE | 2025-04-06 16:10 | DIET.CONS ---
Dietary Consultation Note Admission Date: 04/05/2025 19:46 Assessment: 64 y F admitted for GLF. Dietitian consulted for suspected malnutrition, BMI 19. EMR reviewed, pt had surgery this afternoon. BMI is underweight for age. Ht: 157.48 cm Wt: 47.627 kg BMI: 19.2 UBW: majority of weights since 2022 are between 47-49 kg Last BM: 04/05/25 (04/05/25 21:33) MNA: 12 Suleman Score: 20 Diet: 04/06/25 Dinner General (Regular) Diet Diet Modifications: Nutrition Percent Meal Consumed 50% 04/06/25 05:59 Labs: RBC 4.19 X10^6/uL (4.0-5.2) 04/05/25 18:01 Hgb 12.8 g/dL (12.0-16.0) 04/05/25 18:01 Hct 37.4 % (36-46) 04/05/25 18:01 Creatinine 1.04 mg/dL (0.52-1.04) 04/05/25 18:01 Nutrition Diagnosis: BMI underweight for age r/t inadequate oral intake aeb BMI 19.2 Interventions: Ensure plus BID EER: 1600 kcals (35 kcals/kg per BMI) 55 g protein daily (1 g/kg adjusted IBW) Monitoring/Evaluations: Will re-assess ONS needs based on PO intakes post-op, f/u for full assessment with pt when able Electronically Signed by: Devora Martínze 04/06/25 16:10 Clinical Dietitian [address] [address]
[2025-04-06] MEDS: IBUPROFEN 600 MG TABLET PO ×2 (16:48→22:22)
[2025-04-06] MEDS: SODIUM CHLORIDE 0.9% FLUSH 10 ML IV (20:06)
[2025-04-06] MEDS: ASPIRIN EC 81 MG TABLET PO (20:06)
[2025-04-06] MEDS: SENNOSIDES 8.6 MG TABLET 17.2 MG PO (20:06)
[2025-04-06] MEDS: DOCUSATE 100 MG CAPSULE PO (20:06)
--- NOTE | 2025-04-06 23:38 | PC.NURSE ---
Patient is alert and oriented. Breath sounds CTA w/shallow respirations. RA sat repeatedly dropping into upper 80's so placed on oxygen per NC at 1L/min with sat improving to 95% and is on a continuous pulse oximeter. Encouraged use of I.S. Now she is asleep and sat is 07% so decreased to 0.5L/min and will titrate off as able. HRR and telemetry reading was SR w/1st degree AVB. Denied nausea. BT present and abdomen is soft; reports passing lots of flatus. Indwelling catheter is patent; urine is clear, yellow. Is able to turn herself in bed. Has been out of bed with walker and 1 assist past shift. Aquacel dressing to left hip is CDI. CMS is intact although does have chronic numbness in bilateral LE from toes to knees and also tingling/numbness in bilateral hands and is unable to feel with fingertips. Pain has been minimal and declined any further pain medication other than scheduled Ibuprofen at this time. Bilateral calf SCD's were applied. Fall risk score is high and bed alarm is activated.
[2025-04-07] VITALS (7 sets, daily range): BP systolic 93–115; BP diastolic 51–66; PULSE 82–88; RESP 17–19; TEMP 36.8–37.8; O2SAT 93–98
[2025-04-07 06:33] LABS: Hematocrit 24.3 % (36-46); Hemoglobin 8.3 g/dL (12.0-16.0)
--- NOTE | 2025-04-07 07:22 | PM.PN.1 ---
Subjective Subjective Interval history: Summary: The pt is a 64 yo who presents to the ER with a left femoral neck fracture after she fell at home. She states tshe was walking to the bathroom when she turned around and fell. There was no head injury, no LOC, She does have chronic back pain with neuropathy due to a cervical fracture 2 years ago, she quit smoking 2 years ago and has a > 40 pk yr hx. Sometimes uses a cane to walk at home, has a walker at home but doesn't use it. 04/06: HIEN. Imaging picked up right kidney hydronephrosis and hydroureter. S: Pain is well-controlled, she would like to discharge if able. O: VSS NAD, alert and oriented. Fluent speech. Lungs are clear, normal rate and effort. Heart is regular, no murmur gallop or rub. Abdomen is soft, non distended. Extremities are free of edema. IMAGING: Postop pain hip x-ray: HIEN Ankle x-ray: No acute bony abnormality or significant effusion. Pelvis CT: Transcervical fracture of the left femur. Severe dilation of the right renal pelvis, with transition point at the UPJ. UPJ obstruction not excluded. Consider outpatient CT IVP unless there is abnormal creatinine (in which case an inpatient CT IVP would be recommended) Hip x-ray: Impacted transcervical fracture of the left femur. Chest x-ray: No acute cardiopulmonary abnormality is seen. 04/07 CTKUB: A/P: . Left hip fracture, active. 2. Hypertension, active. 3. Acute hypoxic respiratory failure, active. 4. Probable PAF with RVR, active. 5. Right hydronephrosis on CT. PLAN: -local pharmacies are closed, there is no way to get oral pain medication for discharge today. -she also has hydroureter and hydronephrosis. I am discussing the case with Urology to see what they recommend. She requires another night in the hospital for pain control and urologic consultation. Full resuscitation Anticipate 2 midnights in the hospital, supports inpatient status. Exam Vital Signs (past 8 hours): - 04/07/25 01:00 04/07/25 06:45 Temperature 98.9 F 99 F Pulse Rate 86 82 Respiratory Rate 18 19 Blood Pressure 102/61 115/66 Pulse Oximetry 93 93 Oxygen Flow Rate 0.5 1 Oxygen Delivery Method Nasal Cannula Oxygen Flow Rate 1 Objective Labs 04/07/25 06:15 04/05/25 18:01 Labs: Laboratory Results - last 24 hr 04/07/25 06:15 Hgb 8.3 L Hct 24.3 L PFSH Medical History Aortic stenosis Calcium pyrophosphate deposition disease (CPPD) Cervical myelopathy (~2017) Chronic back pain (~1988) Healthy adult Heavy menstrual period History of abnormal cervical Pap smear Hyperlipidemia Hypertension Idiopathic progressive polyneuropathy Insomnia Murmur Painful menstrual periods Scoliosis Vertigo (~2018) Surgical History Status post cervical spinal fusion Status post laminectomy Social History household members: significant other Smoking Status: Former smoker alcohol intake: never Assessment & Plan Time-Based Coding :: [TOTAL MINUTES] spent with patient and on the chart (including review of chart, obtaining history, exam, reviewing outside data, placing orders, documenting exam and treatment plan, and counseling patient) on [DATE].
[2025-04-07] MEDS: ASPIRIN EC 81 MG TABLET PO ×2 (08:40→20:10)
[2025-04-07] MEDS: DOCUSATE 100 MG CAPSULE PO ×2 (08:40→20:10)
[2025-04-07] MEDS: IBUPROFEN 600 MG TABLET PO ×3 (08:40→21:29)
[2025-04-07] MEDS: LOSARTAN 50 MG TABLET 100 MG PO (08:41)
[2025-04-07] MEDS: CEFADROXIL 500 MG CAPSULE PO ×2 (08:42→20:11)
--- NOTE | 2025-04-07 08:49 | P.PN_ITS ---
Exam Vital Signs (past 8 hours): - 04/07/25 01:00 04/07/25 06:45 04/07/25 08:20 Temperature 98.9 F 99 F 98.2 F Pulse Rate 86 82 83 Respiratory Rate 18 19 19 Blood Pressure 102/61 115/66 106/59 L Pulse Oximetry 93 93 97 Oxygen Flow Rate 0.5 1 1 04/07/25 08:41 Temperature Pulse Rate 83 Respiratory Rate Blood Pressure 106/59 L Pulse Oximetry Oxygen Flow Rate Oxygen Delivery Method Nasal Cannula Oxygen Flow Rate 1 Objective Labs 04/07/25 06:15 04/05/25 18:01 Labs: Laboratory Results - last 24 hr 04/07/25 06:15 Hgb 8.3 L Hct 24.3 L PFSH Medical History Aortic stenosis Calcium pyrophosphate deposition disease (CPPD) Cervical myelopathy (~2017) Chronic back pain (~1988) Healthy adult Heavy menstrual period History of abnormal cervical Pap smear Hyperlipidemia Hypertension Idiopathic progressive polyneuropathy Insomnia Murmur Painful menstrual periods Scoliosis Vertigo (~2018) Surgical History Status post cervical spinal fusion Status post laminectomy Social History household members: significant other Smoking Status: Former smoker alcohol intake: never Assessment & Plan Post-op Postoperative Procedures: Procedures Operation Date: 04/06/25 10:30 Actual Procedure Side Surgeon p Left Total Hip Arthroplasty/Anterior Approach Left Antwan Lau MD Postoperative plan narrative: ID: 64 yo F s/p LEFT Total Hip Arthroplasty on 04/06/25 for a LEFT Femoral Neck Fracture S: Pain controlled with pain medications. Denies F/C/NS/CP/SOB. Tolerating PO. She has already gotten out of bed twice and walked about the room. O: LEFT Hip: Dressings C/D/I Fires Quad/Hamstring/TA/Gastroc/EHL SILT in S/S/DP/SP/T nerve distributions Cap refill < 2 sec A/P: 64 yo F s/p LEFT Total Hip Arthroplasty on 04/06/25 ?Admitted to Hospitalist (Appreciate assistance with this patient) No Hip precautions ?WBAT ?PT/OT ?DVT Proph per primary team ?Multimodal Pain Control Recommend aspirin 81 mg twice per day for DVT prophylaxis Nutritional consult postoperatively given very slender body habitus. Recommend patient obtain Mend perioperative nutrition supplements to help with healing from this surgery Prophylactic cefadroxil postoperatively given elevated risk for periprosthetic joint infection (40 year smoking history with recent cessation, possible rheumatoid arthritis, suspected malnutrition) Please play the perioperative total hip counseling videos on the [employer] channel ( [email or web address] ) postoperatively in the patient's hospital room to provide additional counseling to her regarding her surgery ?DISPO: Pending however the patient will follow up with Orthopedics in 2 weeks Jules Langley MD Orthopedics [phone] cell Time Spent With Patient Time with patient: 15-24 minutes
--- NOTE | 2025-04-07 09:16 | OT.IP.EVAL ---
Current Diagnoses Fracture of unspecified part of neck of left femur, initial encounter for closed fracture (04/05/25) Surgery Performed Operation Date: 04/06/25 10:30 Actual Procedures p Left Total Hip Arthroplasty/Anterior Approach(Left) - Antwan Lau MD Past Medical History (Last Reviewed 04/05/25 @ 21:48 by Carrie Hobson DO) Aortic stenosis Calcium pyrophosphate deposition disease (CPPD) Cervical myelopathy (~2017) Chronic back pain (~1988) Healthy adult Heavy menstrual period History of abnormal cervical Pap smear Hyperlipidemia Hypertension Idiopathic progressive polyneuropathy Insomnia Murmur Painful menstrual periods Scoliosis Vertigo (~2018) Surgical History (Last Reviewed 04/05/25 @ 21:48 by Carrie Hobson DO) Status post cervical spinal fusion Status post laminectomy Occupational Therapy Inpatient Evaluation/Re-Eval M1 OT IP Prior Functional Status Start: 04/07/25 11:17 Freq: Status: Active Protocol: Document 04/07/25 11:17 [facility] (Rec: 04/07/25 11:27 [facility] Desktop) Medical Review Prior Functional Status Medical History Yes Reviewed Diet/Fluid Regular Consistency Communication WNLs, O2 sats desaturate when she talks Mobility and Gait Mod I, falls d/t left leg weakness after cervical issues and s/p C3-7 fusion 2 years ago Activities of Daily I Living and IADL's Prior Functional I, cares for SO who has breathing issues Level (Other details ) Social History Household Members significant other Living Arrangements House Number of Floors ( One Floor Floors) Number of Stairs To 2 steps and no rail to enter Enter/Railing? Home Environment High Toilet,Walk in Shower,Built-In Shower Seat Home Equipment Four Wheel Walker,Straight Cane,Grab Bars In Shower Employment Status Retired M2 OT-IP Current Condition Start: 04/07/25 11:17 Freq: Status: Active Protocol: Document 04/07/25 11:17 [facility] (Rec: 04/07/25 11:27 [facility] Desktop) Occupational Therapy Current Condition Current Condition Evaluation Date 04/07/25 Treatment Diagnosis Displaced Left femoral neck fx, S/P L HIEN Diagnosis Onset Date 04/05/25 M3 OT- IP Subjective and Pain Start: 04/07/25 11:17 Freq: Status: Active Protocol: Document 04/07/25 11:17 [facility] (Rec: 04/07/25 11:27 [facility] Desktop) OT- Subjective Occupational Therapy Visit Type Type Initial Evaluation Visit Start Time 09:16 Visit Stop Time 09:45 Occupational Therapy Visit Comments Patient Comments Pt agreed to get up. Patient/Caregiver To go home. Goals OT Pain Assessment Pain When Pain Assessed At Rest Pain Present Pain Present Pain Reported Location left hip Intensity 1 Scale Used Numeric (0 - 10) M4 OT- IP ADL's Start: 04/07/25 11:17 Freq: Status: Active Protocol: Document 04/07/25 11:17 [facility] (Rec: 04/07/25 11:27 [facility] Desktop) OT ADL-Grooming General Evaluation Grooming Ability Minimal Assistance Comments OT Grooming Comments Assist to comb the back of her head. OT ADL-Oral Care General Eval Oral Care Ability Independent OT ADL-Dressing Comments OT Dressing Comments Educated to dress the LLE first and take out last. Pt will also benefit from LB dressing equipment. M5 OT- IP IADL's Start: 04/07/25 11:17 Freq: Status: Active Protocol: Document 04/07/25 11:17 [facility] (Rec: 04/07/25 11:27 [facility] Desktop) OT-Instrumental Activities of Daily Living Home Safety Awareness Awareness of Need Good Awareness for Assistance at Home Home Safety Comments VC for hand placement for FWW. M6 OT- IP Functional Cognition Start: 04/07/25 11:17 Freq: Status: Active Protocol: Document 04/07/25 11:17 [facility] (Rec: 04/07/25 11:27 [facility] Desktop) Cognitive Factors Limiting Selfcare Function Cognitive Ability Level of Alertness Alert Patient Orientation Name,Age,Birthday,Month,Date,Year,Day of Week,Place, Situation Attention Span Capable of Focused Attention,Capable of Sustained Ability Attention Ability to Follow Able to Follow One Step Commands Commands Cognitive Comments Cognitive Assessment VC for FWW safety. Comments OT- Vision and Hearing OT- Hearing Assessment OT- Hearing Hearing Impaired Assessment OT- Vision Assessment Visual Acuity Glasses All The Time Visual Attentiveness WFL Occular Pursuits WFL M7 OT- IP Mobility and Balance Start: 04/07/25 11:17 Freq: Status: Active Protocol: Document 04/07/25 11:17 [facility] (Rec: 04/07/25 11:27 [facility] Desktop) OT- Bed Mobility Assessment Supine to Sit Supine to Sit Assist Standby Assistance,Bedrails OT-Transfer Assessment Sit to and From Stand Sit to and from Contact Guard Assistance Stand Transfers Transfer Ability Contact Guard Assistance Technique Transfer Destination Bed,Chair Transfer Technique Stand Step Pivot Devices Transfer Assistive Gait Belt,Front Wheeled Walker,4 Wheeled Walker Devices Comments Mobility Comments Pt SBA with bed mobility and heavy use of bed rails. CGA with 4ww and close SBA /CGA with FWW. OT- Balance Assessment Sitting Balance and Reactions Static Sitting Good Balance Ability Dynamic Sitting Fair Balance Ability Standing Balance and Reactions Static Standing Fair Balance Ability Dynamic Standing Fair Balance Ability M8 OT- IP Objective Assessments Start: 04/07/25 11:17 Freq: Status: Active Protocol: Document 04/07/25 11:17 [facility] (Rec: 04/07/25 11:27 [facility] Desktop) OT Gross Range of Motion Upper Extremity Range of Motion Assessment Within Functional Limits OT Strength Upper Extremity Strength Assessment Within Functional Limits M9 OT- IP Assessment and Plan Start: 04/07/25 11:17 Freq: Status: Active Protocol: Document 04/07/25 11:17 [facility] (Rec: 04/07/25 11:27 [facility] Desktop) OT Summary Assessment and Plan Potential Rehabilitation Excellent Potential Analytic Complexity Moderate at Evaluation Summary OT Impairments Pain,Balance,Functional Mobility,Grooming,Dressing, Toileting,Bathing,Toilet Transfers,Shower Transfers, Activity Tolerance Progress Towards Progressing Toward Goals,Slow Progress due to Pain Goals Assessment Summary Pt MOD complexity and having lower HH today and O2 drops when talking and needing cues to take deep breaths in. Pt mainly CGA for mobility needs and will need assist for dressing, toileting, and showering needs and will benefit form LB dressing equipment. Pt to go home with 24/7 assist and home health when medically stable. Goals Self-Feeding Goal Independent Grooming Goal Independent Dressing Goal Independent Toileting Goal Independent Bathing Goal Minimal Assistance Toilet Transfer Goal Independent Shower Transfer Goal Independent Days to Meet Goals 10 Frequency of Treatment Other frequency 5x/week Treatment Plan Other Treatment GO over LB dressing equipment. Recommendations and Next Treatment Focus Discharge Recommendations OT Discharge Home with 24/7 Assist Available,Home Health Recommendations Transportation Needs Private Vehicle at Discharge
--- NOTE | 2025-04-07 10:35 | DI.CT.S_ITS ---
PROCEDURE: CT IVP A/P W/WO INDICATIONS: Right hydronephrosis TECHNIQUE: Optional 5 mm thick noncontrast images acquired from the diaphragm to the symphysis pubis. After the administration of intravenous contrast, 5 mm thick images acquired from the diaphragm to the symphysis pubis after a 10-minute delay. 2 mm thick coronal and sagittal reformats were then performed of the kidneys and ureters. For radiation dose reduction, the following was used: automated exposure control, adjustment of mA and/or kV according to patient size. An additional 15 minutes delay axial image was obtained. COMPARISON: [facility], CT, CT PEL WO CON, 04/05/2025, 18:39. FINDINGS: Image quality: Diagnostic. Kidneys and Ureters: The left kidney is normal in size with normal physiologic excretion of contrast on early urographic phase. No filling defect within the left kidney. No solid left renal mass lesion. There is normal opacification of the left ureter which is normal in size on delayed phase. There is moderate to severe right hydronephrosis with a dilated common opacities, renal pelvis which has layering contrast on 15 minutes delayed phase images. There is asymmetric delayed excretion of contrast in the right kidney compared to left, concerning for increased hydrostatic pressure. The right ureter is not opacified by contrast mild which degrades assessment for possible filling defect or obstructing mass. No right hydroureter. Bladder: Bladder wall thickness is normal. No calcified bladder stones. OTHER: Lower chest: Unremarkable. Liver: No solid mass. Gallbladder: No radiopaque gallstones or wall thickening. Biliary ducts: No biliary dilation. Pancreas: No ductal dilation. Spleen: Size is within normal limits. Adrenal Glands: No adrenal nodules. Stomach and Bowel: Normal colonic caliber, without significant wall thickening. Moderate stool burden within the large bowel. Peritoneum: No abnormal intraperitoneal fluid. No free air. Ventral Wall: No hernia. Abdominal Nodes: No retroperitoneal or mesenteric adenopathy by size criteria. Vessels: Aorta and inferior vena cava are normal in size. Extensive calcified and soft plaque within the abdominal aorta. PELVIS: Pelvic Organs: Changes of bilateral tubal ligation.. Pelvic Nodes: No enlarged lymph nodes. Miscellaneous: No inguinal hernias are seen. Bones: Expected postoperative changes of recent left total hip prosthesis with expected postoperative gas foci along the left proximal thigh and hip. Small volume fluid tracking along the superficial fascial margin, as expected postoperatively. No periprosthetic fracture. IMPRESSION: Findings concerning for right ureter pelvic junction stricture versus versus obstructing lesion, which is suboptimally assessed due to asymmetric delayed contrast excretion. Consider evaluation by Urology and possible endoscopy. Expected recent postoperative changes of left total hip prosthesis. Dictated by: Brendan Moctezuma M.D. on 04/07/2025 at 13:08 Approved by: Brendan Moctezuma M.D. on 04/07/2025 at 13:22
--- NOTE | 2025-04-07 10:42 | PT.IIE ---
Current Diagnoses Fracture of unspecified part of neck of left femur, initial encounter for closed fracture (04/05/25) Surgery Performed Operation Date: 04/06/25 10:30 Actual Procedures p Left Total Hip Arthroplasty/Anterior Approach(Left) - Antwan Lau MD Surgical History (Last Reviewed 04/05/25 @ 21:48 by Carrie Hobson DO) Status post cervical spinal fusion Status post laminectomy Medical History (Last Reviewed 04/05/25 @ 21:48 by Carrie Hobson DO) Aortic stenosis Calcium pyrophosphate deposition disease (CPPD) Cervical myelopathy (~2017) Chronic back pain (~1988) Healthy adult Heavy menstrual period History of abnormal cervical Pap smear Hyperlipidemia Hypertension Idiopathic progressive polyneuropathy Insomnia Murmur Painful menstrual periods Scoliosis Vertigo (~2018) Physical Therapy Inpatient Evaluation/Re-Eval M1 PT IP Prior Functional Status Start: 04/07/25 10:25 Freq: NEEDED Status: Active Protocol: Document 04/07/25 09:13 MB (Rec: 04/07/25 10:41 MB Desktop) Medical Review Prior Functional Status Medical History Yes Reviewed Diet/Fluid Regular Consistency Communication WNLs, O2 sats desaturate when she talks Mobility and Gait Mod I, falls d/t left leg weakness after cervical issues and s/p C3-7 fusion 2 years ago Activities of Daily I Living and IADL's Prior Functional I, cares for SO who has breathing issues Level (Other details ) Social History Household Members significant other Living Arrangements House Number of Floors ( One Floor Floors) Number of Stairs To 2 steps and no rail to enter Enter/Railing? Home Environment High Toilet,Walk in Shower,Built-In Shower Seat Home Equipment Four Wheel Walker,Straight Cane,Grab Bars In Shower Employment Status Retired M2 PT-IP Current Condition Start: 04/07/25 10:25 Freq: NEEDED Status: Active Protocol: Document 04/07/25 09:13 [facility] (Rec: 04/07/25 10:41 MB Desktop) Physical Therapy Current Condition Current Condition Evaluation Date 04/07/25 Treatment Diagnosis Left hip fracture s/p anterior hip replacement M3 PT-IP Subjective Start: 04/07/25 10:25 Freq: NEEDED Status: Active Protocol: Document 04/07/25 09:13 MB (Rec: 04/07/25 10:41 MB Desktop) Subjective Physical Therapy Visit Type Type Initial Evaluation Visit Start Time 09:13 Visit Stop Time 09:41 Number of ANESTHESIOLOGIST ATTENDING Visits 0 Physical Therapy Visit Comments Patient Comments Pt is agreeable to therapy Therapy Pain Assessment Pain When Pain Assessed At Rest Pain Present Pain Present Pain Reported Location left hip Intensity 1 Scale Used Numeric (0 - 10) M4 PT-IP Mobility and Gait Start: 04/07/25 10:25 Freq: NEEDED Status: Active Protocol: Document 04/07/25 09:13 MB (Rec: 04/07/25 10:41 MB Desktop) PT-Bed Mobility Assessment Supine to Sit Supine to Sit Standby Assistance Sit to Supine Sit to Supine Standby Assistance Scooting Scooting to Edge of Standby Assistance Bed PT-Transfer Assessment Sit to and From Stand Sit to and from Contact Guard Assistance,1 Person Assistance Stand Equipment Transfer Assistive Gait Belt,Front Wheeled Walker Device Transfers Transfer Destination Toilet Transfer Ability Level of Assist Contact Guard Assistance Comments Mobility Comments Truncal ataxia with bed mobility Negative orthostatic hypotension with BP and HR right UE: supine 96/55, 75; standing 93/62, 108; standing 1' 110/67, 111. O2 sats on RA decrease with talking to 83% and pt is NOT SOB. When stopping talking and nose breathing, sats increase to 88-90% Gait Assessment Gait Gait Assistance Contact Guard Assist Required: Distance (Feet) 20 Able to Maintain Yes Weight Bearing Status During Gait Assistive Devices Assistive Device Gait Belt,Front Wheeled Walker,4 Wheeled Walker Orthotic/Prosthetic No Devices or Brace: Gait Deviations General Gait Pattern Ataxic,Decreased Stride Length,Decreased Feet Clearance ,Flexed Trunk,Narrow Based Gait,Step-to Gait Factors Limiting Gait Function Factors Limiting Abnormal Tonal Influences,Decreased Activity Tolerance, Gait Function Difficulty Following Directions,Incoordination,Limited Range of Motion,Pain,Poor Balance,Poor Safety Awareness Comments Gait Comments 20' with RW and 100' with rollator. Pt tends to step first with left foot rather than right foot and then changes to reciprocal gait with rollator. She does take a rest break in hallway and locks walker with cues. She presents with cord-type presentation with mobility in limbs: mildly ataxia Stair Climbing Assessment Evaluation Level of Assist On Minimal Assistance Stairs Devices Stair Climbing None Assistive Devices Technique/Endurance Stair Climbing Ascend and Descend Direction Stair Climbing Step to Step Technique Number of Steps 2 Climbed Query Text: Stair Climbing Set # 1 Repetitions (reps) Comments Stair Climbing PT holds right hand and about waist at gait belt, cues Comments for ascend first with right foot and then left foot, catch balance and then repeat, step gait. With descend, PT ed pt to step down first with left foot. PT-Balance Assessment Sitting Balance and Reactions Static Sitting Fair Balance Ability Dynamic Sitting Fair Balance Ability Standing Balance and Reactions Static Standing Fair Balance Ability Dynamic Standing Fair Balance Ability Device Used RW and rollator, CGA M5 PT-IP Objective Assessments Start: 04/07/25 10:25 Freq: NEEDED Status: Active Protocol: Document 04/07/25 09:13 MB (Rec: 04/07/25 10:41 MB Desktop) Orientation Orientation/Cognition Level of Alertness Alert Language Function No Deficits Noted Ability Safety Awareness Decreased Safety Awareness Memory Description No Deficits Noted Gross Range of Motion Upper Extremity ROM Impairments Defer to OT Lower Extremity ROM Assessment Left Impaired Strength Lower Extremity Strength Assessment Left Impaired Comments Strength Comments Limited ROM and strength testing LLE d/t pain Coordination Assessment Gross Coordination Gross Coordination Impaired Sensation Assessment Comments Sensation Comments NT Muscle Tone Muscle Tone WNL No Comments Muscle Tone Comments B rapid DF clonus to testing, overall tone changes and movement changes in UEs, trunk and LEs d/t chronic spinal cord issues. She tends to favor her left leg but moves it after the right leg for stepping until cued M6 PT-IP Treatment Start: 04/07/25 10:25 Freq: NEEDED Status: Active Protocol: Document 04/07/25 09:13 MB (Rec: 04/07/25 10:41 MB Desktop) Physical Therapy Treatment Education Education Provided Weight Bearing Status,Safety M7 PT-IP Assessment and Plan Start: 04/07/25 10:25 Freq: NEEDED Status: Active Protocol: Document 04/07/25 09:13 MB (Rec: 04/07/25 10:41 MB Desktop) PT Summary Assessment and Plan Potential Rehabilitation Good Potential Status of Condition Evolving at Evaluation Summary Impairments Pain,ROM,Strength,Balance,Coordination,Tone,Bed Mobility,Transfers,Gait,Activity Tolerance Assessment Summary Pt is a 64 y/o female reporting history of left leg issues and falling after spinal cord issues, possibly from , from her cervical spine and she is 2 years post-op C3-7 fusion. She tripped on her left foot and fractured her left hip and she is s/p anterior hip replacement. She is WBAT and without precautions. Her movements are very cord-like in nature with truncal ataxia with bed mobility, clonus and neurological-type gait. She is not orthostatic though her HR increases greatly with supine to stand and her Hgb decreased from 12.8-8.3. She has low O2 sats on RA but is asymptomatic and sats increase with not talking and nasal breathing. Pt would like to return home at d/c and her daughter is moving in. Recommend HHPT at d/c and 24 hour assistance. She is looking into getting a RW at home. She does have a 4WRW. She does have decreased safety awareness, tends to be impulsive and have trouble following commands today. Goals Bed Mobility Goal Independent Transfer Goal Independent,Front Wheeled Walker,Four Wheeled Walker Gait Goal Independent,Front Wheel Walker,Four Wheel Walker Gait Distance 150 Other Goals Pt will ascend and descend 2 steps with either cane and CGA or LANDSCAPE FOREMAN from one person to allow safe home entrance . Days to Meet Goals 5 Frequency of Treatment Frequency Of Once a Day Treatment Treatment Plan Physical Therapy Bed Mobility Training,Transfer Training,Gait Training, Treatment Plan Therapeutic Exercise,Balance Retraining,Post Op Education,Discharge Planning,Hot or Cold Pack, Neuromuscular Re-ed,Coordination Retraining,Manual Therapy Weight Bearing Status Weight Bearing Weight Bear as Tolerated Status Recommendations To Nursing Amount of Assist 1 Person Assist Needed Discharge Recommendations PT Discharge Home,Home with 24/7 Assist Available,Home Health Recommendations Transportation Needs Private Vehicle at Discharge - PT assist x1
--- NOTE | 2025-04-07 15:09 | CM.DPC ---
DCP Cont: Per MD, pt may have ureteral stone and pending more labs and her H&H dropped today and not yet medically stable to discharge. Per PT/OT, pt did quite well with mobility today and cleared for d/c home and Dtr confirms she will transport pt home at discharge. Possible HH pending pt's progress tomorrow. FARHAN Swann
[2025-04-07 16:58] LABS: Appearance Urine UA CLEAR; Bilirubin Urine UA NEGATIVE (NEGATIVE); Color Urine UA YELLOW; Glucose Urine UA NEGATIVE (Negative); Ketones Urine UA NEGATIVE (NEGATIVE); Leukocyte Esterase Urine UA TRACE (NEGATIVE); Nitrite Urine UA NEGATIVE (Negative); Occult Blood Urine UA NEGATIVE (Negative); Protein Urine UA NEGATIVE (Negative); Specific Gravity Urine UA 1.015 (1.000-1.035); Urobilinogen Urine UA 0.2 E.U./dL (0.2)
[2025-04-07 17:01] LABS: pH Urine UA 6.0 (4.5-8.0)
[2025-04-07 17:04] LABS: Culture Indicated Urine Cult Not Indicated
[2025-04-07] MEDS: SODIUM CHLORIDE 0.9% FLUSH 10 ML IV (20:10)
[2025-04-07] MEDS: SENNOSIDES 8.6 MG TABLET 17.2 MG PO (20:10)
[2025-04-08] VITALS (8 sets, daily range): BP systolic 84–104; BP diastolic 51–61; PULSE 62–82; RESP 14–18; TEMP 37–37.9; O2SAT 92–95
[2025-04-08] MEDS: ACETAMINOPHEN 325 MG TABLET 650 MG PO (01:43)
[2025-04-08] MEDS: IBUPROFEN 600 MG TABLET PO ×2 (01:43→09:39)
--- NOTE | 2025-04-08 02:36 | PC.NURSE ---
Desat to high 70's while sleeping, placed on 2L oxygen via nasal cannula- 95% on 2 L
--- NOTE | 2025-04-08 08:52 | P.PN_ITS ---
Exam Vital Signs (past 8 hours): - 04/08/25 01:43 04/08/25 02:40 04/08/25 02:57 Temperature 100.2 F H 99.9 F H 99.9 F H Pulse Rate Respiratory Rate Blood Pressure Pulse Oximetry Oxygen Flow Rate 04/08/25 03:01 04/08/25 08:00 Temperature 98.6 F Pulse Rate 77 62 Respiratory Rate 18 16 Blood Pressure 104/61 84/51 L Pulse Oximetry 94 95 Oxygen Flow Rate 1 2 Oxygen Delivery Method Nasal Cannula Oxygen Flow Rate 2 Objective Labs 04/07/25 06:15 04/05/25 18:01 Labs: Laboratory Results - last 24 hr 04/07/25 16:50 Urine Color Yellow Urine Appearance Clear Urine pH 6.0 Ur Specific [place] 1.015 Urine Protein Negative Urine Glucose (UA) Negative Urine Ketones Negative Urine Occult Blood Negative Urine Nitrate Negative Urine Bilirubin Negative Urine Urobilinogen 0.2 Ur Leukocyte Esterase Trace H Urine RBC 0-1/hpf Urine WBC 1-5/hpf Ur Squamous Epith Cells 1-5 /hpf Urine Bacteria Few (2-10) H Ur Culture Indicated? Cult not indicated Vol Urine Centrifuged 10ml (spun) [facility] Medical History Aortic stenosis Calcium pyrophosphate deposition disease (CPPD) Cervical myelopathy (~2017) Chronic back pain (~1988) Healthy adult Heavy menstrual period History of abnormal cervical Pap smear Hyperlipidemia Hypertension Idiopathic progressive polyneuropathy Insomnia Murmur Painful menstrual periods Scoliosis Vertigo (~2018) Surgical History Status post cervical spinal fusion Status post laminectomy Social History household members: significant other Smoking Status: Former smoker alcohol intake: never Assessment & Plan Post-op Postoperative Procedures: Procedures Operation Date: 04/06/25 10:30 Actual Procedure Side Surgeon p Left Total Hip Arthroplasty/Anterior Approach Left Antwan Lau MD Postoperative status narrative: Postoperative plan narrative: ID: 64 yo F s/p LEFT Total Hip Arthroplasty on 04/06/25 for a LEFT Femoral Neck Fracture S: Pain controlled with pain medications. Denies F/C/NS/CP/SOB. Tolerating PO. Walked 20ft with physical therapy yesterday. She stayed overnight for pain control (due to pharmacies being closed). O: LEFT Hip: Dressings C/D/I Fires Quad/Hamstring/TA/Gastroc/EHL SILT in S/S/DP/SP/T nerve distributions Cap refill < 2 sec A/P: 64 yo F s/p LEFT Total Hip Arthroplasty on 04/06/25. Doing well. She will have an outpt urology appointment. Likely discharge to home today. ?Admitted to Hospitalist (Appreciate assistance with this patient) No Hip precautions ?WBAT ?PT/OT ?DVT Proph per primary team ?Multimodal Pain Control Recommend aspirin 81 mg twice per day for DVT prophylaxis Nutritional consult postoperatively given very slender body habitus. Recommend patient obtain Mend perioperative nutrition supplements to help with healing from this surgery Prophylactic cefadroxil postoperatively given elevated risk for periprosthetic joint infection (40 year smoking history with recent cessation, possible rheumatoid arthritis, suspected malnutrition) Please play the perioperative total hip counseling videos on the [email or web address] channel ( [email or web address] ) postoperatively in the patient's hospital room to provide additional counseling to her regarding her surgery ?DISPO: Pending however the patient will follow up with Orthopedics in 2 weeks Jules Langley MD Orthopedics [phone] cell Time Spent With Patient Time with patient: 15-24 minutes
[2025-04-08] MEDS: DOCUSATE 100 MG CAPSULE PO (09:21)
[2025-04-08] MEDS: LOSARTAN 50 MG TABLET 100 MG PO (09:21)
[2025-04-08 09:22] LABS: Hematocrit 24.5 % (36-46); Hemoglobin 8.4 g/dL (12.0-16.0); Mean Corpuscular HGB Conc 34.2 % (30-36); Mean Corpuscular Hemoglobin 30.8 PG (26-34); Mean Corpuscular Volume 90.0 fL (80-100); Platelet Count 144 X10^3/uL (150-400)
[2025-04-08] MEDS: ASPIRIN EC 81 MG TABLET PO (09:22)
[2025-04-08] MEDS: CEFADROXIL 500 MG CAPSULE PO (09:39)
[2025-04-08 09:45] LABS: Blood Urea Nitrogen 30 mg/dL (7-17); Calcium 8.5 mg/dL (8.4-10.2); Carbon Dioxide 21 mmol/L (22-32); Chloride 108 mmol/L (98-107); Estimated Glomerular Filt Rate 52 mL/min (>60); Glucose 129 mg/dL (70-99); HEMOLYSIS < 15 (0-50); Potassium 3.8 mmol/L (3.4-5.1); Sodium 135 mmol/L (137-145)
--- NOTE | 2025-04-08 10:26 | P.DS_ITS ---
History of Present Illness History of Present Illness Chief complaint: GLF, hip injury Narrative: From H&P: The pt is a 64 yo who presents to the ER with a left femoral neck fracture after she fell at home. She states tshe was walking to the bathroom when she turned around and fell. There was no head injury, no LOC, She does have chronic back pain with neuropathy due to a cervical fracture 2 years ago, she quit smoking 2 years ago and has a > 40 pk yr hx. Sometimes uses a cane to walk at home, has a walker at home but doesn't use it. Discharge Providers Provider Date of admission: 04/05/25 19:46 Discharge Date: 04/08/25 Primary care physician: Anita Edwards MD Consults: 04/05/25 18:49 Consult to Orthopedic Surgery Stat Comment: Consulting Provider: Carrie Hobson Reason for consultation: l hip fx Has provider been notified: Yes 04/05/25 19:51 Consult to Physician Routine Comment: Consulting Provider: Carrie Hobson Reason for consultation: hip fx 04/06/25 14:54 Consult to Dietitian, Adult Routine Comment: BMI 19 Reason For Exam: Suspected malnutrition Consult to Discharge Planning Routine Comment: Consult to Occupational Therapy Evaluate & Treat Comment: Physician Instructions: Evaluate and treat Consult to Physical Therapy Evaluate & Treat Comment: Physician Instructions: post op HIEN protocol 04/06/25 20:33 Consult to Pharmacy Routine Comment: triggered by fall assmt Discharge provider: Madhav Leonard MD Summary Hospital Course Discharge Diagnosis: 1. Left hip fracture, active. 2. Hypertension, active. 3. Acute hypoxic respiratory failure, resolved. 4. Probable PAF with RVR, active. 5. Right hydronephrosis on CT. Hospital Course: She was admitted with a fall and hip fracture. She underwent an operative repair with a HIEN. She did have what looked like intermittent runs of AF intraoperative but had no further issues postoperative. She had a mild drop in her hemoglobin consistent with acute blood loss anemia. Initial pelvic imaging did reveal a right hydronephrosis on CT. This was followed up with a CT KUB which revealed right hydronephrosis and hydroureter with no stone visualized in the UVJ. Creatinine was normal and she had no symptoms of renal colic. The she was discussed with Urology, and this will be pursued outpatient next week with a probable cystoscopy. [N], the patient has documentation of a left ventricle ejection fracture less than or equal to 40%, or moderately or severely reduced left ventricle systolic function. [N], the patient has a history of heart transplant or left ventricular assist device (LVAD). [N], the patient was prescribed an ROWAN inhibitor at discharge or is already being taken. The patient was not prescribed an ROWAN-inhibitor because of the following exception: NA [N], the patient was prescribed Metoprolol succinate, bisoprolol, or carvedilol at discharge. The patient was not prescribed Metoprolol succinate, bisoprolol, or carvedilol at discharge because of the following exception: NA Status at Discharge Cognitive/behavioral status at discharge: oriented Functional status at discharge: uses cane/walker Overall status at discharge: patient is progressing back to baseline Time Spent with Patient Time spent: Greater than 30 minutes Exam Vital Signs (past 8 hours): - 04/08/25 02:40 04/08/25 02:57 04/08/25 03:01 Temperature 99.9 F H 99.9 F H Pulse Rate 77 Respiratory Rate 18 Blood Pressure 104/61 Pulse Oximetry 94 Oxygen Flow Rate 1 04/08/25 08:00 Temperature 98.6 F Pulse Rate 62 Respiratory Rate 16 Blood Pressure 84/51 L Pulse Oximetry 95 Oxygen Flow Rate 2 Oxygen Delivery Method Nasal Cannula Oxygen Flow Rate 2 Narrative Exam Narrative: Discharge exam: NAD, alert and oriented. Fluent speech. Lungs are clear, normal rate and effort. Heart is regular, no murmur gallop or rub. Abdomen is soft, non distended. Extremities are free of edema. Surgical wound is unremarkable. Objective Imaging Multiple studies: : Radiologist's impression: Postop pain hip x-ray: HIEN Ankle x-ray: No acute bony abnormality or significant effusion. Pelvis CT: Transcervical fracture of the left femur. Severe dilation of the right renal pelvis, with transition point at the UPJ. UPJ obstruction not excluded. Consider outpatient CT IVP unless there is abnormal creatinine (in which case an inpatient CT IVP would be recommended) Hip x-ray: Impacted transcervical fracture of the left femur. Chest x-ray: No acute cardiopulmonary abnormality is seen. 04/07 CTKUB: Findings concerning for right ureter pelvic junction stricture versus versus obstructing lesion, which is suboptimally assessed due to asymmetric delayed contrast excretion. Consider evaluation by Urology and possible endoscopy. Expected recent postoperative changes of left total hip prosthesis. Labs 04/08/25 09:15 04/08/25 09:15 Labs: Laboratory Results - last 24 hr 04/07/25 04/08/25 16:50 09:15 WBC 7.8 RBC 2.72 L Hgb 8.4 L Hct 24.5 L MCV 90.0 MCH 30.8 MCHC 34.2 RDW 13.5 Plt Count 144 L Sodium 135 L Potassium 3.8 Chloride 108 H Carbon Dioxide 21 L BUN 30 H Creatinine 1.16 H Estimated GFR 52 L BUN/Creatinine Ratio 25.9 H Glucose 129 H Calcium 8.5 Urine Color Yellow Urine Appearance Clear Urine pH 6.0 Ur Specific [place] 1.015 Urine Protein Negative Urine Glucose (UA) Negative Urine Ketones Negative Urine Occult Blood Negative Urine Nitrate Negative Urine Bilirubin Negative Urine Urobilinogen 0.2 Ur Leukocyte Esterase Trace H Urine RBC 0-1/hpf Urine WBC 1-5/hpf Ur Squamous Epith Cells 1-5 /hpf Urine Bacteria Few (2-10) H Ur Culture Indicated? 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 Left hip fracture, active. 2. Hypertension, active. 3. Acute hypoxic respiratory failure, active. 4. Probable PAF with RVR, active. 5. Right hydronephrosis on CT. Plan of Treatment: Discharge home with pain medications. She will have home health, and a referral was sent to urology. Dr. Rothman we will contact her on Friday for follow up plans. She he fails to hear from Urology, she will text me and I will assist. Discharge Plan Discharge Plan Patient Disposition: Home Provider Discharge Comment: Stable for discharge home. Discharge orders & Medications Prescriptions: New aspirin 81 mg Tablet,Delayed Release (Dr/Ec) 81 mg PO BID Qty: 60 0RF oxycodone 5 mg Tablet 5 mg PO Q3H PRN (Reason: Pain, Moderate (4-6)) Qty: 15 0RF Continued irbesartan-hydrochlorothiazide 300-12.5 mg tablet 0.5 tab PO DAILY Qty: 45 4RF felodipine 10 mg tablet extended release 24 hr 10 mg PO DAILY Qty: 90 4RF trazodone 50 mg tablet 25 mg PO DAILY Qty: 90 2RF (DME) Disabled Parking Permit See Rx Instructions .ROUTE .MEDSUPPLY Qty: 1 0RF Rx Instructions: I find this person to be disabled Medication counseling provided by Pharmacist: No Follow up/Referrals: Irwin Sorto DO [Physician, Urology] Madhav Leonard MD [Physician, Internal Medicine] Anita Edwards MD [Primary Care Provider, Family Practice] Discharge Health Status Multidrug resistant organism: No MDRO Diet/Activity/Treatments Diet: Regular Visit Report/Discharge Packet Instructions: DI for Hip Fracture, DI for Hydronephrosis-Adult Stand Alone Forms: Patient Portal/API Discharge Data Primary Care Provider: Anita Edwards
--- NOTE | 2025-04-08 10:43 | CM.DPC ---
DCP Cont. Reviewed EMR and team rounds for pt's medical status and updates. Pt has been medically cleared for home d/c, dtr will provide transport. No CM d/c needs are indicated at this time.
--- NOTE | 2025-04-08 11:19 | DIET.PN1 ---
Dietary Progress Note Assessment:f/u Met with pt at bedside. Reports typically 2 meals per day, stable weight. Has chocolate Boost (20-30 g protein) at home that she can drink. Discussed increasing kcal and protein intake. Recc 1-2 Boost drinks per day when d/c home. Increase if not eating meals. Also recc 1-2 snacks for increased kcals (ex-crackers and cheese) Discussed BMI is underweight for age. Ht: 157.48 cm Wt: 47.627 kg BMI: 19.2 (underweight for age) Last BM: 04/05/25 (04/05/25 21:33) MNA: 12 Suleman Score: 20 Diet: 04/06/25 Dinner General (Regular) Diet Diet Modifications: Nutrition Percent Meal Consumed 45 04/07/25 18:16 Percent Meal Consumed 80 04/06/25 18:13 Labs: RBC 2.72 X10^6/uL (4.0-5.2) L 04/08/25 09:15 Hgb 8.4 g/dL (12.0-16.0) L 04/08/25 09:15 Hct 24.5 % (36-46) L 04/08/25 09:15 Creatinine 1.16 mg/dL (0.52-1.04) H 04/08/25 09:15 Monitoring/Evaluations: pt d/c today. f/u PRN Electronically Signed by: Devora Martínez 04/08/25 11:19 Clinical Dietitian [address] [id number]
--- NOTE | 2025-04-08 12:12 | PC.NURSE ---
Addendum entered by Ximena Vera, RN 04/08/25 13:17: Pt given D/C instruction w/understanding. SL D/C's by staff Transportation arrived; Pt escorted by staff via W/C to waiting vehicle D/C in stable post op status. Original Note: Pt A/O denies discomfort at this time. A/O [employer] dsg to surgical hip CDI MD in to see; orders for D/C received. Transportation will arrive soon. Call light w/in reach, pt calls appropriately for needs.
== END 2025-04-08 13:12 | disposition home or self-care (01) | DRG 521 ==
LOC: ED 19:25 → AC 19:46
PROVIDERS: Hospitalist; Orthopaedic Surgery Adult Reconstructive Orthopaedic Surgery; Admitting Provider Internal Medicine; Emergency Provider Emergency Medicine; PCP Family Medicine; Referring Provider Emergency Medicine; Visit Provider Internal Medicine
PROC: 0SRB0J9 Replacement of Left Hip Joint with Synthetic Substitute, Cemented, Open Approach (ICD-10-PCS; CPT 27130; principal; 2025-04-06 10:30)
DX: S72.032A Displaced midcervical fracture of left femur, initial encounter for closed fracture (principal); J96.01 Acute respiratory failure with hypoxia; N13.30 Unspecified hydronephrosis; N13.4 Hydroureter; G62.9 Polyneuropathy, unspecified; I10 Essential (primary) hypertension; I48.0 Paroxysmal atrial fibrillation; G47.00 Insomnia, unspecified; M25.752 Osteophyte, left hip; M85.48 Solitary bone cyst, other site; W18.30XA Fall on same level, unspecified, initial encounter; Z87.891 Personal history of nicotine dependence; Z98.1 Arthrodesis status
CPT/HCPCS: 27130; 36415; 71045; 72192; 73502; 73600; 74178; 76000; 80048; 80053; 81001; 85014; 85018; 85025; 85027; 85610; 96374; 97116; 97161; 97166; 99233; 99283; 99284; C1776; C1713; J0131; J0689; J1100; J1171; J2250; J2272; J2405; J2704; J3010; J7030; J7050; J7120; Q9967

== ENCOUNTER → 2025-04-20 11:26 | Outpatient (CLI) | payer MEDICARE, OTHER, SELFPAY ==
[2025-04-05 21:33] VITALS: BMI 19.2
== END ==
PROVIDERS: PCP Family Medicine; Visit Provider Urology
DX: N13.30 Unspecified hydronephrosis (principal)
CPT/HCPCS: 87086